=== PATIENT | male | born 1965 | race Caucasian/White ===

== ENCOUNTER → 2017-12-13 08:33 | Outpatient (CLI) | payer BC, SELFPAY ==
[2017-12-13 10:00] LABS: Alanine Aminotransferase 44 U/L (12-78); Albumin Level 3.5 gm/dL (3.4-5.0); Alkaline Phosphatase 97 U/L (46-116); Anion Gap 12.5 mEq/L (5-15); Aspartate Amino Transferase 17 U/L (15-37); Bilirubin,Total 0.4 mg/dL (0.2-1.0); Blood Urea Nitrogen 12 mg/dL (7-18); Calcium 9.2 mg/dL (8.5-10.1); Carbon Dioxide 27 mmol/L (21.0-32.0); Chloride 104 mmol/L (98-107); Chol/HDL Ratio 4.7 (1-3.5); Cholesterol 193 mg/dL (140-200); Creatinine,Serum 0.86 mg/dL (0.70-1.30); Estimated Glomerular Filt Rate 93 ml/min (>60); GFR (African American) 113 ML/MIN (>60); Globulin 3.5 gm/dl (1.3-3.2); Glucose 204 mg/dL (74-106); HDL Cholesterol 41 mg/dL (27-67); LDL Cholesterol 122 mg/dL (0-130); Potassium 4.5 mmoL/L (3.5-5.1); Sodium 139 mmol/L (136-145); Triglycerides 149 mg/dL (30-200); VLDL Cholesterol 30 mg/dL (0-40)
== END ==
PROVIDERS: Visit Provider Nurse Practitioner Family
DX: E78.00 Pure hypercholesterolemia, unspecified (principal); I10 Essential (primary) hypertension
CPT/HCPCS: 36415; 80053; 80061

== ENCOUNTER → 2018-08-01 15:30 | Outpatient (CLI) | payer BC, SELFPAY ==
--- NOTE | 2018-08-01 15:41 | XR_ITS ---
XR ankle RT min 3V Ordering Physician: Vianey Sinclair MD Patient Age: 53 years: Male HISTORY: ITS.REASON: RT ANKLE PAIN Anterior and medial ankle pain 1 month. No, reported. TECHNIQUE: 3 views right ankle COMPARISON :No previous FINDINGS . No acute fracture joint spaces well-maintained at the plafond and ankle mortise. . There is some minimal osseous densities off the tip lateral malleolus which likely reflects small old avulsion injury or degenerative change or accessory ossicle. Medial malleolus is intact. There may be some early degenerative changes as articulation with the medial aspect of talus. There is talar be seen in some osseous irregularities at the dorsal aspect the distal talus. These appear old likely reflect some mild degenerative changes, possibly posttraumatic changes as well... IMPRESSION . Ankle mortise appears overall maintained and intact. Suggestion of perhaps some mild degenerative changes at tip of lateral malleolus; & possibly medial aspect of talus
== END ==
PROVIDERS: PCP Family Medicine; Visit Provider Emergency Medicine
DX: M25.571 Pain in right ankle and joints of right foot (principal)
CPT/HCPCS: 73610

== ENCOUNTER → 2020-01-06 09:02 | Outpatient (CLI) | payer BC, SELFPAY ==
[2020-01-06 10:03] LABS: Alanine Aminotransferase 73 U/L (12-78); Albumin Level 4.5 g/dl (3.5-5.0); Albumin/Globulin Ratio 1.5 (1.1-1.8); Alkaline Phosphatase 87 U/L (38-126); Anion Gap 10.1 mEq/L (5-15); Aspartate Amino Transferase 66 U/L (17-59); Bilirubin,Total 0.6 mg/dl (0.2-1.3); Blood Urea Nitrogen 18 mg/dl (9-20); Calcium 10.1 mg/dl (8.4-10.2); Carbon Dioxide 30 mmol/L (22.0-30.0); Chloride 102 mmol/L (98-107); Chol/HDL Ratio 3.5 (1-3.5); Cholesterol 195 mg/dl (140-200); Estimated Glomerular Filt Rate 78 ml/min (>60); GFR (African American) 94 ML/MIN (>60); Glucose 162 mg/dl (74-100); HDL Cholesterol 55 mg/dl (40-60); Potassium 5.1 mmoL/L (3.5-5.1); Sodium 137 mmol/L (136-145); Total Protein,Serum 7.5 g/dl (6.3-8.2); Triglycerides 203 mg/dl (30-150); VLDL Cholesterol 41 mg/dL (0-40)
[2020-01-06 10:13] LABS: Direct LDL Cholesterol 119.92 mg/dL (100-129)
[2020-01-06 10:41] LABS: Hemoglobin A1C 7.4 % (4.0-6.0)
== END ==
PROVIDERS: Visit Provider Family Medicine
DX: E78.5 Hyperlipidemia, unspecified (principal); I10 Essential (primary) hypertension; F41.9 Anxiety disorder, unspecified
CPT/HCPCS: 36415; 80053; 80061; 83036

== ENCOUNTER → 2020-08-03 08:16 | Outpatient (CLI) | payer BC, SELFPAY ==
[2020-08-03 09:47] LABS: Hemoglobin A1C 7.4 % (4.0-6.0)
[2020-08-03 11:03] LABS: Alanine Aminotransferase 62 U/L (12-78); Albumin Level 4.6 g/dl (3.5-5.0); Albumin/Globulin Ratio 1.4 (1.1-1.8); Alkaline Phosphatase 86 U/L (38-126); Anion Gap 13.7 mEq/L (5-15); Aspartate Amino Transferase 53 U/L (17-59); Bilirubin,Total 0.8 mg/dl (0.2-1.3); Blood Urea Nitrogen 17 mg/dl (9-20); Calcium 9.6 mg/dl (8.4-10.2); Carbon Dioxide 28 mmol/L (22.0-30.0); Chloride 102 mmol/L (98-107); Cholesterol 176 mg/dl (140-200); Estimated Glomerular Filt Rate 100 ml/min (>60); GFR (African American) 121 ML/MIN (>60); Globulin 3.3 g/dL (1.3-3.2); Glucose 157 mg/dl (74-100); HDL Cholesterol 58 mg/dl (40-60); Potassium 4.7 mmoL/L (3.5-5.1); Sodium 139 mmol/L (136-145); Total Protein,Serum 7.9 g/dl (6.3-8.2); Triglycerides 200 mg/dl (30-150); VLDL Cholesterol 40 mg/dL (0-40)
[2020-08-03 11:14] LABS: Direct LDL Cholesterol 92.19 mg/dL (100-129)
[2020-08-03 11:34] LABS: Prostate Specific Ag Screen 0.4 ng/ml (0.0-4.0)
== END ==
PROVIDERS: Visit Provider Family Medicine
DX: I10 Essential (primary) hypertension (principal); E78.5 Hyperlipidemia, unspecified; E11.9 Type 2 diabetes mellitus without complications; Z12.5 Encounter for screening for malignant neoplasm of prostate
CPT/HCPCS: 36415; 80053; 80061; 83036; G0103

== ENCOUNTER → 2021-02-09 07:13 | Outpatient (CLI) | payer BC, SELFPAY ==
[2021-02-09 08:38] LABS: Alanine Aminotransferase 112 U/L (12-78); Albumin Level 4.1 g/dl (3.5-5.0); Albumin/Globulin Ratio 1.5 (1.1-1.8); Alkaline Phosphatase 86 U/L (38-126); Anion Gap 13.2 mEq/L (5-15); Aspartate Amino Transferase 134 U/L (17-59); Bilirubin,Total 0.6 mg/dl (0.2-1.3); Blood Urea Nitrogen 19 mg/dl (9-20); Carbon Dioxide 27 mmol/L (22.0-30.0); Chloride 103 mmol/L (98-107); Chol/HDL Ratio 3.7 (1-3.5); Cholesterol 133 mg/dl (140-200); Estimated Glomerular Filt Rate 88 ml/min (>60); GFR (African American) 106 ML/MIN (>60); Globulin 2.7 g/dL (1.3-3.2); Glucose 266 mg/dl (74-100); HDL Cholesterol 36 mg/dl (40-60); Potassium 4.2 mmoL/L (3.5-5.1); Sodium 139 mmol/L (136-145); Total Protein,Serum 6.8 g/dl (6.3-8.2); Triglycerides 255 mg/dl (30-150); Uric Acid 3.9 mg/dl (3.5-8.5); VLDL Cholesterol 51 mg/dL (0-40)
[2021-02-09 08:49] LABS: Direct LDL Cholesterol 70.14 mg/dL (100-129)
[2021-02-09 08:50] LABS: Hemoglobin A1C 8.2 % (4.0-6.0)
== END ==
PROVIDERS: Visit Provider Family Medicine
DX: I10 Essential (primary) hypertension (principal); E78.5 Hyperlipidemia, unspecified; E79.0 Hyperuricemia without signs of inflammatory arthritis and tophaceous disease; E11.9 Type 2 diabetes mellitus without complications
CPT/HCPCS: 36415; 80053; 80061; 83036; 84550

== ENCOUNTER → 2021-06-06 12:05 | Outpatient (CLI) | payer BC, SELFPAY | PROVIDERS: PCP Family Medicine; Visit Provider Nurse Practitioner | DX: Z20.822 Contact with and (suspected) exposure to COVID-19 (principal) | CPT/HCPCS: C9803; U0003; U0005 ==

== ENCOUNTER → 2021-06-12 09:48 | Outpatient (CLI) | payer BC, SELFPAY ==
[2021-06-12 10:34] LABS: INR 1.06 (0.9-1.1); Prothrombin Time 11.9 seconds (10.1-12.5)
[2021-06-12 10:52] LABS: Chloride 100 mmol/L (98-107); Potassium 4.4 mmoL/L (3.5-5.1); Sodium 137 mmol/L (136-145)
[2021-06-12 10:55] LABS: Alanine Aminotransferase 113 U/L (12-78); Albumin Level 4.5 g/dl (3.5-5.0); Albumin/Globulin Ratio 1.7 (1.1-1.8); Alkaline Phosphatase 89 U/L (38-126); Anion Gap 15.4 mEq/L (5-15); Aspartate Amino Transferase 125 U/L (17-59); Bilirubin,Total 0.6 mg/dl (0.2-1.3); Blood Urea Nitrogen 19 mg/dl (9-20); Calcium 10.1 mg/dl (8.4-10.2); Carbon Dioxide 26 mmol/L (22.0-30.0); Estimated Glomerular Filt Rate 87 ml/min (>60); GFR (African American) 106 ML/MIN (>60); Globulin 2.6 g/dL (1.3-3.2); Glucose 349 mg/dl (74-100); Total Protein,Serum 7.1 g/dl (6.3-8.2)
[2021-06-12 11:28] LABS: Basophils # 0.1 K/mm3 (0-0.2); Basophils % 1.3 % (0.1-2.0); Eosinophils # 0.4 K/mm3 (0.0-0.4); Eosinophils % 7.2 % (0.1-12.0); Hematocrit 45.3 % (42.0-52.0); Hemoglobin 15.3 g/dL (14.1-18.0); Lymphocytes # 0.7 K/mm3 (0.7-4.5); Lymphocytes % 12.4 % (10-50); Mean Corpuscular HGB Conc 33.8 g/dL (31.8-35.4); Mean Corpuscular Hemoglobin 31.1 pg (27.0-31.2); Mean Corpuscular Volume 91.9 fl (80-94); Mean Platelet Volume 9.1 fl (7.4-10.4); Monocytes # 0.2 K/mm3 (0.1-1.0); Neutrophils # 4.3 K/mm3 (1.8-7.8); Neutrophils % 75.1 % (37.0-80.0); Platelet Count 195 K/mm3 (142-424); Red Blood Count 4.93 M/mm3 (4.60-6.20); Red Cell Distribution Width 13.3 % (11.5-17.5); White Blood Count 5.8 K/mm3 (4.8-10.8)
== END ==
PROVIDERS: Visit Provider Surgery
DX: K42.9 Umbilical hernia without obstruction or gangrene (principal)
CPT/HCPCS: 36415; 80053; 82565; 84520; 85025; 85610

== ENCOUNTER → 2021-06-14 08:05 | Outpatient (CLI) | payer BC, SELFPAY | PROVIDERS: PCP Family Medicine; Visit Provider Nurse Practitioner | DX: U07.1 COVID-19 (principal) | CPT/HCPCS: C9803; U0003; U0005 ==

== ENCOUNTER → 2021-07-03 09:35 | Outpatient (CLI) | payer BC, SELFPAY ==
--- NOTE | 2021-07-03 09:37 | CT_ITS ---
PROCEDURE: CT ABDOMEN PELVIS W CON CLINICAL INDICATION: eval hernia COMPARISON: No exams were available for comparison TECHNIQUE: IV Contrast: 75ML Isovue 370 Oral Contrast None Axial images obtained with sagittal and coronal reformats. All CT scans at the facility use one or more dose reduction, viz: automated exposure control, ma/kV adjustment per patient size (including targeted exams where dose is matched to indication, i.e. head), or iterative reconstruction technique. FINDINGS: LOWER THORAX: Nonspecific small patchy areas of ground-glass attenuation are present in lung bases. This could be inflammatory or infectious. ABDOMEN & PELVIS: Fatty liver. No focal liver lesion identified. The spleen, adrenal glands, pancreas, and gallbladder have an unremarkable appearance. There are bilateral renal cysts the largest in the lower pole on the left measuring 5 cm. The appendix has an unremarkable appearance. No intestinal obstruction or free air. There is thickening of the urinary bladder wall nonspecific. No pelvic mass or abnormal fluid collection. There is a small umbilical hernia which contains fat. There is a bridging osteophyte in the left SI joint superiorly. IMPRESSION: 1. Small umbilical hernia containing fat. 2. Nonspecific small patchy areas of ground-glass attenuation in the lower lobes which could be inflammatory or infectious. Dictated by: Nathan Guerrero MD 07/04/2021 14:36 Nathan Guerrero MD in [facility] 07/04/2021 14:36
[2021-07-03 10:06] LABS: Blood Urea Nitrogen 14 mg/dl (9-20); Estimated Glomerular Filt Rate 100 ml/min (>60); GFR (African American) 121 ML/MIN (>60)
== END ==
PROVIDERS: PCP Family Medicine; Visit Provider Surgery
DX: K42.9 Umbilical hernia without obstruction or gangrene (principal)
CPT/HCPCS: 36415; 74177; 82565; 84520; Q9967

== ENCOUNTER 2021-07-24 07:10 | Day surgery (SDC) | payer BC, SELFPAY ==
[2021-07-20 09:23] VITALS: BMI 29.7
[2021-07-24 07:27] VITALS: BP 141/84; PULSE 73; RESP 18; TEMP 36.1; O2SAT 99
--- NOTE | 2021-07-24 07:43 | HMH.ANESCL ---
[facility] Anesthesia Checklist - Patient Identification Patient Identification: Arm Band - Structural Data Admitted From: Home Planned Operative Procedure/s: Circumcision Consent for Planned Operative Procedure(s) Verified: Yes - NPO Status Verified Time NPO: 00:00 - Additional verifications Anesthesia Reactions: No Hx Blood Transfusions: No Blood Transfusion Reaction: No - Airway Assessment C-Spine Mobility Assessed: Yes TMJ Mobility Assessed: Yes Dentition: Good Dentition - Neurological Assessment Level of Consciousness: Awake Hx Seizures: No Numbness or tingling in extremities: No - Anesthesia Plan Anesthesia Risk discussed: Yes Anesthesia Plan: Verified ASA Class: III Anesthesia Type: MAC [facility] History I have reviewed the patient's past medical history: Yes Medical History: Reports:: Diabetes Mellitus Type 2, Hyperlipidemia, Hypertension Denies:: Cancer, Diabetes Mellitus Type 1, Internal Pacemaker, MRSA, Seizures *Have you ever received a pneumonia vaccine?: Yes *Have you received a flu vaccine this season?: Yes Other Medical History: Denies: Blood Transfusion Reaction Anesthesia experience/problems:: None Other Surgeries: Yes: Colonoscopy, Other. No: Pacemaker Amputation: No Fractures: No - *Social History Last grade of school completed: High school graduate Smoking Status: Current every day smoker Tobacco Type: smokeless tobacco # Packs/Day (cigarettes): 1 Alcohol Intake: current Alcohol Intake Frequency:: a few times a week Substance Use Type: denies use *Occupational Status:: employed Housing: house Household Members: spouse *Travel in the last 8 weeks: None Family Hx:: Heart Attack, Coronary Artery Disease
[2021-07-24 07:48] LABS: Basophils # 0.2 K/mm3 (0-0.2); Basophils % 2.1 % (0.1-2.0); Eosinophils # 0.5 K/mm3 (0.0-0.4); Eosinophils % 6.5 % (0.1-12.0); Hematocrit 45.8 % (42.0-52.0); Lymphocytes # 1.7 K/mm3 (0.7-4.5); Lymphocytes % 24.2 % (10-50); Mean Corpuscular HGB Conc 32.7 g/dL (31.8-35.4); Mean Corpuscular Hemoglobin 31.2 pg (27.0-31.2); Mean Corpuscular Volume 95.2 fl (80-94); Mean Platelet Volume 8.4 fl (7.4-10.4); Monocytes # 0.3 K/mm3 (0.1-1.0); Monocytes % 4.6 % (1.7-9.3); Neutrophils # 4.3 K/mm3 (1.8-7.8); Neutrophils % 62.6 % (37.0-80.0); Platelet Count 204 K/mm3 (142-424); Red Cell Distribution Width 13.6 % (11.5-17.5); White Blood Count 6.9 K/mm3 (4.8-10.8)
[2021-07-24 08:29] LABS: Anion Gap 11.2 mEq/L (5-15); Blood Urea Nitrogen 17 mg/dl (9-20); Calcium 9.5 mg/dl (8.4-10.2); Carbon Dioxide 28 mmol/L (22.0-30.0); Chloride 100 mmol/L (98-107); Creatinine Clearance Estimated 132 mL/min (50-200); Estimated Glomerular Filt Rate 87 ml/min (>60); GFR (African American) 106 ML/MIN (>60); Glucose 226 mg/dl (74-100); Potassium 4.2 mmoL/L (3.5-5.1); Sodium 135 mmol/L (136-145)
[2021-07-24 09:55] VITALS: BP 98/58; PULSE 71; RESP 18; TEMP 36.4; O2SAT 91
[2021-07-24 10:05] VITALS: BP 108/63; PULSE 62; RESP 18; O2SAT 92
--- NOTE | 2021-07-24 10:09 | P.OP_ITS ---
Date of procedure: 07/24/21 Pre-op Diagnosis:: Phimosis Post-op Diagnosis:: Phimosis Procedure performed:: Circumcision Surgeon:: Riccardo Izaguirre MD [employer]:: Tamra Morales Anesthesia: MAC Estimated blood loss (mL): 2 Clinical Note:: 56-year-old white male with a several month history of recurring balanitis and difficulty retracting foreskin presents for circumcision. Operative findings:: Phimotic foreskin noted. Incision performed without location. Operative note:: Patient taken to the operating room after informed consent was obtained. He was placed on the operating table in the supine position and monitored anesthesia care administered. Was prepped and draped in the standard surgical fashion. Preoperative antibiotics and sequential compression devices were placed. Local anesthetic was placed in a ringlike fashion around the base of the penis. A total of 30 cc was used. After adequate analgesia the circumcision marked just below the caldera of the glans while retracting the foreskin to approximate maximal length. The dorsal foreskin was then clamped back to the line that was marked and held for 30 seconds. The clamp and removed with scissors were used to incise the skin back to the marked line. We then placed clamps on the 4 corners of the skin in the Metzenbaum scissors were used to incise the skin in a circumferential fashion and the skin removed. Stasis was achieved and a frenulotomy was performed incising the adhesed frenulum on the ventral portion of the glans. After adequate hemostasis the foreskin reapproximated to the preputial skin below the glans. 300 4-0 chromic's were used in a simple rapid fashion. Frenulotomy closed with a 4-0 chromic. A Vaseline impregnated gauze was placed around the incision and a compression dressing applied. Patient tolerated procedure well there is minimal blood loss. Condition: stable Disposition: same day Specimens:: Foreskin was not sent Complications:: None
[2021-07-24 10:15] VITALS: BP 106/74; PULSE 63; RESP 18; O2SAT 96
[2021-07-24 10:25] VITALS: BP 106/74; PULSE 63; RESP 18; O2SAT 96
[2022-04-12 10:56] LABS: POC Glucose,Bedside 210 (70-110)
== END 2021-07-24 10:25 | disposition home or self-care (01) ==
LOC: OR 07:12
PROVIDERS: PCP Family Medicine; Visit Provider Urology
PROC: (CPT 54161; principal; 2021-07-24 08:15)
DX: N47.1 Phimosis (principal); E11.9 Type 2 diabetes mellitus without complications; E78.5 Hyperlipidemia, unspecified; I10 Essential (primary) hypertension; Z88.0 Allergy status to penicillin; Z79.899 Other long term (current) drug therapy
CPT/HCPCS: 54161; 80048; 82962; 85025; 96374

== ENCOUNTER → 2022-01-09 07:59 | Outpatient (CLI) | payer BC, SELFPAY ==
[2022-01-09 09:08] LABS: Hemoglobin A1C 8.1 % (4.0-6.0)
[2022-01-09 09:12] LABS: Chloride 105 mmol/L (98-107); Potassium 4.7 mmoL/L (3.5-5.1); Sodium 138 mmol/L (136-145)
[2022-01-09 09:14] LABS: Alanine Aminotransferase 65 U/L (12-78); Aspartate Amino Transferase 62 U/L (17-59); Blood Urea Nitrogen 14 mg/dl (9-20); Estimated Glomerular Filt Rate 100 ml/min (>60); GFR (African American) 121 ML/MIN (>60)
[2022-01-09 09:15] LABS: Albumin Level 4.4 g/dl (3.5-5.0); Albumin/Globulin Ratio 1.5 (1.1-1.8); Alkaline Phosphatase 86 U/L (38-126); Anion Gap 11.7 mEq/L (5-15); Bilirubin,Total 0.4 mg/dl (0.2-1.3); Calcium 9.8 mg/dl (8.4-10.2); Carbon Dioxide 26 mmol/L (22.0-30.0); Chol/HDL Ratio 3.5 (1-3.5); Cholesterol 176 mg/dl (140-200); Globulin 2.9 g/dL (1.3-3.2); Glucose 247 mg/dl (74-100); HDL Cholesterol 51 mg/dl (40-60); Total Protein,Serum 7.3 g/dl (6.3-8.2); Triglycerides 371 mg/dl (30-150); VLDL Cholesterol 74 mg/dL (0-40)
[2022-01-09 09:26] LABS: Direct LDL Cholesterol 81.24 mg/dL (100-129)
[2022-01-09 10:06] LABS: Prostate Specific Ag Screen 0.6 ng/ml (0.0-4.0)
== END ==
PROVIDERS: PCP Family Medicine; Visit Provider Family Medicine
DX: E11.9 Type 2 diabetes mellitus without complications (principal); E78.5 Hyperlipidemia, unspecified; E79.0 Hyperuricemia without signs of inflammatory arthritis and tophaceous disease; I10 Essential (primary) hypertension; Z12.5 Encounter for screening for malignant neoplasm of prostate; Z79.84 Long term (current) use of oral hypoglycemic drugs
CPT/HCPCS: 36415; 80053; 80061; 83036; 84550; G0103

== ENCOUNTER → 2022-05-14 16:25 | Outpatient (CLI) | payer BC, SELFPAY ==
--- NOTE | 2022-05-14 16:30 | XR_ITS ---
PROCEDURE INFORMATION: Exam: XR Lumbosacral Spine Exam date and time: 05/14/2022 4:32 PM Age: 57 years old Clinical indication: Low back pain TECHNIQUE: Imaging protocol: Radiologic exam of the lumbosacral spine. Views: 2 or 3 views. COMPARISON: CT ABDOMEN PELVIS W CON 07/03/2021 10:23 AM FINDINGS: Bones/joints: Mild loss of the lumbar lordotic curvature. mild-moderate diffuse disc space narrowing. Findings most pronounced at L3-L4 and L4-L5. Soft tissues: Unremarkable. IMPRESSION: Lumbar spondylosis with multilevel disc degeneration most pronounced at L3-L4 and L4-L5.
== END ==
PROVIDERS: PCP Family Medicine; Visit Provider Family Medicine
DX: M54.42 Lumbago with sciatica, left side (principal)
CPT/HCPCS: 72100

== ENCOUNTER → 2022-08-01 07:50 | Outpatient (CLI) | payer BC, SELFPAY ==
[2022-08-01 09:12] LABS: Alanine Aminotransferase 61 U/L (12-78); Albumin Level 4.8 g/dl (3.5-5.0); Albumin/Globulin Ratio 1.8 (1.1-1.8); Alkaline Phosphatase 92 U/L (38-126); Anion Gap 12.9 mEq/L (5-15); Aspartate Amino Transferase 66 U/L (17-59); Bilirubin,Total 0.7 mg/dl (0.2-1.3); Blood Urea Nitrogen 16 mg/dl (9-20); Calcium 9.1 mg/dl (8.4-10.2); Carbon Dioxide 26 mmol/L (22.0-30.0); Chloride 106 mmol/L (98-107); Chol/HDL Ratio 3.6 (1-3.5); Cholesterol 178 mg/dl (140-200); Estimated Glomerular Filt Rate 87 ml/min (>60); GFR (African American) 105 ML/MIN (>60); Globulin 2.7 g/dL (1.3-3.2); Glucose 172 mg/dl (74-100); HDL Cholesterol 50 mg/dl (40-60); Potassium 4.9 mmoL/L (3.5-5.1); Sodium 140 mmol/L (136-145); Total Protein,Serum 7.5 g/dl (6.3-8.2); Triglycerides 248 mg/dl (30-150); VLDL Cholesterol 50 mg/dL (0-40)
[2022-08-01 09:16] LABS: Hemoglobin A1C 7.8 % (4.0-6.0)
[2022-08-01 09:22] LABS: Direct LDL Cholesterol 87.54 mg/dL (100-129)
== END ==
PROVIDERS: PCP Family Medicine; Visit Provider Family Medicine
DX: I10 Essential (primary) hypertension (principal); E78.5 Hyperlipidemia, unspecified; E11.9 Type 2 diabetes mellitus without complications; Z79.84 Long term (current) use of oral hypoglycemic drugs
CPT/HCPCS: 36415; 80053; 80061; 83036

== ENCOUNTER 2024-05-26 11:59 | Outpatient (CLI) | payer BC, SELFPAY ==
--- NOTE | 2024-05-26 12:10 | ECG_ITS ---
APPROVED REPORT Exam: Resting ECG HR:127 bpm ECG Measurements Heart Rate 127 AXES QRSd 87 QRS 5 QT 278 T 63 QTc 353 Conclusion ATRIAL FIBRILLATION WITH RAPID VENTRICULAR RESPONSE NONSPECIFIC T-WAVE ABNORMALITY ABNORMAL RHYTHM ECG UNCONFIRMED REPORT Electronically signed by : Navdeep Giordano MD 05/26/2024 17:00:51
[2024-05-26 14:19] LABS: Basophils # 0.1 K/mm3 (0-0.2); Basophils % 1.3 % (0.1-2.0); Eosinophils # 0.4 K/mm3 (0.0-0.4); Hematocrit 44.7 % (42.0-52.0); Hemoglobin 15.5 g/dL (14.1-18.0); Lymphocytes # 1.4 K/mm3 (0.7-4.5); Lymphocytes % 15.7 % (10-50); Mean Corpuscular HGB Conc 34.7 g/dL (31.8-35.4); Mean Corpuscular Hemoglobin 31.1 pg (27.0-31.2); Mean Corpuscular Volume 89.8 fl (80-94); Mean Platelet Volume 7.5 fl (7.4-10.4); Monocytes # 0.3 K/mm3 (0.1-1.0); Monocytes % 3.8 % (1.7-9.3); Neutrophils # 6.4 K/mm3 (1.8-7.8); Neutrophils % 74.2 % (37.0-80.0); Platelet Count 253 K/mm3 (142-424); Red Blood Count 4.98 M/mm3 (4.60-6.20); Red Cell Distribution Width 13.7 % (11.5-17.5); White Blood Count 8.7 K/mm3 (4.8-10.8)
[2024-05-26 14:48] LABS: Alanine Aminotransferase 39 U/L (12-78); Albumin Level 4.3 g/dl (3.5-5.0); Alkaline Phosphatase 89 U/L (38-126); Anion Gap 16.6 mEq/L (5-15); Aspartate Amino Transferase 43 U/L (17-59); Bilirubin,Direct 0.4 mg/dl (0.0-0.4); Bilirubin,Indirect 0.3 mg/dL (0.0-0.9); Bilirubin,Total 0.7 mg/dl (0.2-1.3); Bilirubin,Unconjugated 0.3 mg/dL (0.0-1.1); Blood Urea Nitrogen 22 mg/dl (9-20); Calcium 9.6 mg/dl (8.4-10.2); Carbon Dioxide 22 mmol/L (22.0-30.0); Chloride 103 mmol/L (98-107); Chol/HDL Ratio 4.2 (1-3.5); Cholesterol 159 mg/dl (140-200); Estimated Glomerular Filt Rate 86 ml/min (>60); GFR (African American) 105 ML/MIN (>60); Glucose 173 mg/dl (74-100); HDL Cholesterol 38 mg/dl (40-60); Potassium 4.6 mmoL/L (3.5-5.1); Sodium 137 mmol/L (136-145); Total Protein,Serum 7.2 g/dl (6.3-8.2); Triglycerides 452 mg/dl (30-150)
[2024-05-26 14:59] LABS: Direct LDL Cholesterol 62.35 mg/dL (100-129)
[2024-05-26 15:06] LABS: Free T4 (Free Thyroxine) 1.02 ng/dl (0.78-2.19)
[2024-05-26 15:18] LABS: Thyroid Stimulating Hormone 4.13 uIU/mL (0.465-4.68)
== END 2024-05-26 23:59 | disposition home or self-care (01) ==
PROVIDERS: PCP Family Medicine; Referring Provider Internal Medicine; Visit Provider Nurse Practitioner Family
DX: I48.0 Paroxysmal atrial fibrillation (principal); R07.9 Chest pain, unspecified; R06.00 Dyspnea, unspecified; R94.31 Abnormal electrocardiogram [ECG] [EKG]; G47.33 Obstructive sleep apnea (adult) (pediatric)
CPT/HCPCS: 36415; 80048; 80061; 80076; 84439; 84443; 85025; 93005; 93270

== ENCOUNTER 2024-06-05 11:43 | Outpatient (CLI) | payer BC, SELFPAY ==
--- NOTE | 2024-06-05 | CA_ITS ---
APPROVED REPORT Exam: Exercise Treadmill Technologist: Kathy Vance Ht: 6 ft 0 in Wt: 216 lbs BSA: 2.20 m2 HR: 103 bpm BP: 142/92 mmHg Rhythm: Afib, RVR, PVCs or aberrantly conducted beats, inferior T wave abns Medical History Medical History: HTN, Hyperlipidemia, Diabetes Medications: Allopurinol, Celecoxib, Farxiga, Fenofibrate nanocrystallized, Glimepiride, Toprol XL, Metformin ER, Montelukast, Ramipril, Rosuvastatin, Venlafaxine ER, Xarelto Allergies: PCN Cardiac Risk Factors: HTN, Hyperlipidemia, Diabetes, FHX of CAD Stress Test Details Test: Exercise stress testing was performed using a modified Govind protocol. HR Resting HR: 103 bpm Max Heart Rate (APMHR): 161.971059 bpm Max HR Achieved: 179 bpm Target HR (85% APMHR): 136.920176 bpm % of APMHR: 111.18 Recovery HR: 147 bpm BP Resting BP: 142.0/92.0 mmHg Max BP: 176.0/86.0 mmHg Recovery BP: 146.0/97.0 mmHg ECG Resting ECG: Afib, RVR, PVCs or aberrantly conducted beats, inferior T wave abns Stress ECG Conclusion Pt exercised 8:00 on Govind protocol Max HR: 179 % of PM: 111% Max BP: 176/86 Mets: 10.3 Test stopped due to: soa and leg fatigue No chest pain Occ PVC or aberrantly conducted beats Exaggeration of baseline T wave abns in the inferior leads, 0.5mm horizontal ST depression in lead V6 Non-diagnostic GXT due to baseline EKG abns Myoview images reported separately Electronically signed by : Nissa Peralta MD 06/08/2024 11:49:49
--- NOTE | 2024-06-05 11:44 | NM_ITS ---
APPROVED REPORT Exam: Nuclear Stress Test Indication: dysrythmia, htn, diabetes, hyperlipidemia, fm hx, a -fib, c.p., sob, palpitations, abn ekg Patient Location: Outpatient Stress Tech: Kathy Vance DE Tech:Carmita Carcamo TOMMYNicolás RT (R)(N)(M) Ht: 6 ft 1 in Wt: 210 lbs HR: 103 bpm BP: 142/92 mmHg BSA: 2.20 m2 TID: 0.96 BMI: 27.7 History: dysrythmia, htn, diabetes, hyperlipidemia, fm hx, a -fib, c.p., sob, palpitations, abn ekg Procedure: Patient exercised on Govind protocol 8:00 minutes and sec, resting heart rate 103 bpm, resting blood pressure 142/92 mmHg, with exercise maximum heart rate achived was 179 bpm which is 111 % of the maximum predicted heart rate and blood pressure was 176/86 mmHg. Test was stopped due to fatigue. Patient has Average exercise capacity, achieved 10.3 METs of workload on treadmill, the blood pressure response to exercise was Normal. Cardiac Stress and Resting SPECT Images: Cardiac Stress and Resting SPECT images were obtained using technetium 99m Myoview 32.1 mCi stress and 10.95 mCi at rest. Resting and stress imaging in supine and prone positions demonstrate a medium sized, moderate, predominantly fixed perfusion defect in the basal to mid inferior and inferoseptal LV steward. There is minimal reversibility towards the inferoseptal region. Gated imaging and straits moderate reduction in global LV systolic function. LVEF is calculated at 33%. Conclusion: Medium sized, moderate, predominantly fixed perfusion defect in the basal to mid inferior and inferoseptal LV steward. There is minimal reversibility towards the inferoseptal region. Gated imaging and straits moderate reduction in global LV systolic function. LVEF is calculated at 33%. Note that LVEF calculation may be inaccurate in the setting of frequent PVCs at the time of image acquisition. Correlation of LVEF with new or recent TTE is suggested. Electronically signed by : Nissa Peralta MD 06/08/2024 11:52:06
[2024-06-05] MEDS: SODIUM CHLORIDE 0.9% 10ML SYR (RAD ONLY) 10 ML IV ×2 (12:00→13:20)
--- NOTE | 2024-06-05 12:47 | CA_ITS ---
APPROVED REPORT EXAM: Comprehensive 2D, Doppler, and color-flow Echocardiogram Merchandise Appraiser: Reta Rasmussen RVT Ht: 6 ft 0 in Wt: 216lbs BSA: 2.20 BP: 126/89 mmHg Indications: CP,A-FIB,ABN EKG,JAI,EDEMA,HTN,HLD,SOA,SMOKER,FATIGUE 2D Dimensions IVSd 1.63 cm M: 0.6-1.2 LA Volume 50.80 mL PWd 1.12 cm M: 0.6 - 1.2 LA Volume Index 23.09 mL/m2 (M/F) 16-34 LVDd 4.24 cm M: 4.2 - 5.9 M-Mode Dimensions RVDd 2.27 cm (0.9-2.6) LA Diam 4.06 cm (1.9-4.0) LVDd 4.24 cm (3.5-5.7) LVDs 3.40 cm (3.5-5.7) IVSd 1.21 cm (0.6-1.1) PWd 0.49 cm (0.6-1.1) EF (Teich) 41.00% FS 19.80% EDV (Teich) 80.40 mL TAPSE 2.35 (<1.7) ESV (Teich) 47.40 mL Aortic Valve ARNAV Index 1.08 cm2/m2 AoV Peak Telly. 158.0 (50-130 cm/s) AI PHT 662.00 ms AO Peak GR. 9.90 mmHg AO Mean GR. 5.80 (<5 mmHg) AO VTI 27.2 (18-25 cm) ARNAV (VTI) 2.43 (2.5-4.5 cm2) Pulmonary Valve PV Peak Velocity 86.0 (50-150 cm/s) Left Ventricle The left ventricle is normal size. The left ventricular systolic function is normal. The left ventricular ejection fraction is within the normal range. There is increased LV wall thickness. The septum is asynchronous. No regional wall motion abnormalities are noted. Diastolic function is indeterminate. LVEF is 55%. Right Ventricle The right ventricle is normal size. The right ventricular systolic function is normal. Atria The left atrium size is normal. The right atrium size is normal. There is no Doppler evidence of interatrial shunt. Aortic Valve The aortic valve is mildly thickened. There is no aortic valvular stenosis. Mild aortic regurgitation. Mitral Valve The mitral valve is normal in structure. No evidence of mitral valve stenosis. There is no mitral valve regurgitation noted. Tricuspid Valve Tricuspid valve is grossly normal in structure and function. Trace tricuspid regurgitation. There is insufficient TR jet to estimate RVSP. Pulmonic Valve The pulmonary valve is normal in structure. Trace pulmonic regurgitation. Great Vessels The aortic root is normal in size. The ascending aorta is not well-visualized. IVC is normal in size and collapses >50% with inspiration. Pericardium There is no pericardial effusion. Other Information Study Quality: Fair Conclusion Normal biventricular systolic function. Asynchronous septum. Mild AI. Electronically signed by : Nissa Peralta MD 06/15/2024 13:49:16
[2024-06-05] MEDS: ISOTOPE MYOVIEW (PER STUDY) 1 DOSE IV (15:10)
== END 2024-06-05 23:59 | disposition home or self-care (01) ==
LOC: RAD 11:44
PROVIDERS: PCP Family Medicine; Visit Provider Internal Medicine
DX: R07.9 Chest pain, unspecified (principal); R06.00 Dyspnea, unspecified; R94.31 Abnormal electrocardiogram [ECG] [EKG]; I48.91 Unspecified atrial fibrillation
CPT/HCPCS: 78452; 93017; 93018; 93306; A9502

== ENCOUNTER 2024-06-23 08:41 | Day surgery (SDC) | payer BC, SELFPAY ==
[2024-06-23] VITALS (9 sets, daily range): BP systolic 92–151; BP diastolic 57–83; PULSE 69–101; RESP 15–18; TEMP 36.9; O2SAT 90–96; BMI 29.0
--- NOTE | 2024-06-23 07:20 | IR_ITS ---
APPROVED REPORT Patient Location: Outpatient PROCEDURES Left heart catheterization Left ventriculogram Selective coronary angiogram INDICATION Abnormal Myoview, Cardiomyopathy ejection fraction 33% Informed consent was obtained prior to the procedure. COMPLICATIONS NONE Estimated Blood Loss: LESS THAN 10 ML TECHNIQUE One percent lidocaine used to anesthetize the right anterior aspect of the wrist. The right radial artery was accessed via the Seldinger technique. A 6 [place] sheath was placed in the right radial artery. 2.5 mg of Verapamil, 800 mcg of nitroglycerin, 1mg Lidocaine and 5000 U Heparin were given through the arterial sheath. The papa catheter was also used to perform left heart catheterization, left ventriculogram and selective coronary angiogram. At the end of the procedure the sheath was removed good hemostasis was achieved using Traclet band, patient was transferred to the postop holding area in stable condition. ANGIOGRAPHIC RESULTS The left main artery Normal The left anterior descending artery Has proximal and mid vessel 10% luminal regularities. There is a mid LAD myocardial bridge which compresses to 50% during systole The circumflex artery Codominant and has diffuse 10% luminal regularities The right coronary artery Codominant and has diffuse 10% luminal regularities The HANNA ventriculogram reveals Mild left ventricular dilatation ejection fraction 55% The left ventricular end-diastolic pressure Elevated at 20 mmHg IMPRESSION Mild nonflow limiting coronary disease Clinically inconsequential myocardial bridge Mild left ventricular dilatation with preserved ejection fraction Elevated LVEDP PLAN 1. Consider cardiac MRI 2. Risk factor modification 3. Medical management Electronically signed by : Abelino Lebron MD 06/23/2024 11:35:19
[2024-06-23 09:19] LABS: Basophils # 0.1 K/mm3 (0-0.2); Basophils % 1.2 % (0.1-2.0); Eosinophils # 0.3 K/mm3 (0.0-0.4); Eosinophils % 5.1 % (0.1-12.0); Hematocrit 46.2 % (42.0-52.0); Hemoglobin 15.1 g/dL (14.1-18.0); Lymphocytes # 1.1 K/mm3 (0.7-4.5); Lymphocytes % 18.2 % (10-50); Mean Corpuscular HGB Conc 32.7 g/dL (31.8-35.4); Mean Corpuscular Hemoglobin 30.3 pg (27.0-31.2); Mean Corpuscular Volume 92.4 fl (80-94); Mean Platelet Volume 7.8 fl (7.4-10.4); Monocytes # 0.3 K/mm3 (0.1-1.0); Monocytes % 4.7 % (1.7-9.3); Neutrophils # 4.3 K/mm3 (1.8-7.8); Neutrophils % 70.8 % (37.0-80.0); Platelet Count 248 K/mm3 (142-424); Red Cell Distribution Width 13.9 % (11.5-17.5); White Blood Count 6.1 K/mm3 (4.8-10.8)
[2024-06-23 09:24] LABS: Chloride 105 mmol/L (98-107); Sodium 140 mmol/L (136-145)
[2024-06-23 09:25] LABS: Potassium 4.4 mmoL/L (3.5-5.1)
[2024-06-23 09:28] LABS: Anion Gap 13.4 mEq/L (5-15); Blood Urea Nitrogen 20 mg/dl (9-20); Calcium 9.5 mg/dl (8.4-10.2); Carbon Dioxide 26 mmol/L (22.0-30.0); Creatinine Clearance Estimated 121 mL/min (50-200); Estimated Glomerular Filt Rate 86 ml/min (>60); GFR (African American) 105 ML/MIN (>60); Glucose 215 mg/dl (74-100)
[2024-06-23] MEDS: VERAPAMIL 2.5MG/ML 2ML VIAL 2.5 MG IV (11:00)
[2024-06-23] MEDS: HEPARIN 1,000 UNITS/ML 10ML VIAL (CATH LAB) 10000 UNIT IV (11:00)
[2024-06-23] MEDS: 0.9 % SODIUM CHLORIDE 500 ML 25 ML IV (11:00)
[2024-06-23] MEDS: HEPARIN 1,000 UNITS/500ML NS (CATH LAB) 3000 UNIT IV (11:00)
[2024-06-23] MEDS: NITROGLYCERIN 800MCG/8ML SYR (CATH LAB) 800 MCG IA (11:01)
[2024-06-23] MEDS: LIDOCAINE 1% 10ML MDV 20 ML IJ (11:01)
[2024-06-23] MEDS: FENTANYL 100MCG/2ML VIAL 50 MCG IV (11:24)
[2024-06-23] MEDS: MIDAZOLAM HCL 1MG/ML 5ML VIAL 1 MG IV (11:24)
[2024-06-23] MEDS: diphenhydrAMINE 50MG/ML VIAL 50 MG IV (11:25)
[2024-06-23] MEDS: IOPAMIDOL-370 (76%);100ML BOTTLE 75 ML IV (14:48)
--- OUTSIDE RECORDS SUMMARY | 2024-06-23 22:38 | XMS_ITS ---
[facility] [address] [facility] [address] [place] [id number] Care Team Providers Care Traveling Representative Name Role Phone iSmone Gonzales Primary Care Provider REASON FOR VISIT 6 month follow up, Needs colon cancer screening, diabetic eye exam, shingles, & flu vaccines Encounters Encounter Location Date Provider [facility] [address] [facility] [address] [facility] [address] [place] [id number] 06/04/2024 Simone Gonzales PLAN OF TREATMENT No Information
--- OUTSIDE RECORDS SUMMARY | 2024-06-23 22:38 | XMS_ITS | Patient Health Record ---
[facility] [address] [facility] 36 [facility] [address] [place] [id number] Care Team Providers Care Molder Closed Molds Name Role Phone Simone Gonzales Primary Care Provider Radha Posadas Unavailable [phone] Bre Gardner Unavailable [phone] ALLERGIES Allergen (clinical drug ingredient) Drug/Non Drug Allergy documented on EMR Reaction Allergy Type Onset Date Status Penicillin hives Drug Allergy Active RESULTS Component Value Reference Range Notes Glucose (In-House) [...] Interpretation:gluc 242, bun 21 Performing Lab: Notes/Report: Test performed by [facility] [place][note 2]0 [facility] , [place] [address] Scotty Farrell MD, Java Core Developer CLIA: [id number] Sodium 136 135-145 mmol/L Potassium 4.9 3.5-5.3 [...] Interpretation:Normal Performing Lab: Notes/Report: Test performed by [facility] [address] [place] [address] , [place] [address] Scotty Farrell MD, Java Core Developer CLIA: [id number] Creatine Kinase 74 20-200 U/L CK MB Fraction 2.3 <7.7 ng/mL A-Ctouwidh-I Reviewed date:06/02/2024 09:27:45 AM Interpretation:Normal Performing Lab: Notes/Report: Test performed by [facility] [address] [place] [address] , [place] [id number] Scotty Farrell MD, Java Core Developer CLIA: [id number] Troponin-T 14 <6-18 ng/L Patients who are prescribed biotin may exhibit elevated troponin results. Please interpret results accordingly. P-TSH Reviewed date:06/02/2024 09:28:50 AM Interpretation:3.26 Performing Lab: Notes/Report: Test performed by [facility] [address] [place] [address] , [facility] [place] [address] Scotty Farrell MD, Java Core Developer CLIA: [id number] TSH 3.26 0.43-5.25 mU/L P-Uric Acid Reviewed date:06/02/2024 09:27:03 AM Interpretation:3.1 Performing Lab: Notes/Report: Test performed by [facility] , [place] [address] Scotty Farrell MD, Java Core Developer CLIA: [id number] Uric Acid 3.1 3.4-8.0 mg/dL P-Uric Acid Reviewed date:12/17/2023 08:59:12 AM Interpretation:Normal Performing Lab: Notes/Report: Test performed by [facility] , [address], [place] [address] Scotty Farrell MD, Java Core Developer CLIA: [id number] Uric Acid 3.9 3.4-8.0 mg/dL P-Microalbumin/Creatinine, R andom Urine Sample Reviewed date:12/17/2023 08:59:12 AM Interpretation:Normal Performing Lab: Notes/Report: Test performed by [facility] , [place] [address] Scotty Farrell MD, Java Core Developer CLIA: [id number] Albumin/Creatinine Ratio, Urine 6 0-30 ug/mg Microalbumin, Urine, Random 0.3 Creatinine, Urine 52.9 P-PSA Reviewed date:12/17/2023 08:59:12 AM Interpretation:Normal Performing Lab: Notes/Report: Test performed by [facility] , [place] [address] Scotty Farrell MD, Java Core Developer CLIA: [id number] PSA 0.34 <4.00 ng/mL Please note this is an ultrasensitive PSA assay with a lower limit of detection of 0.014 ng/mL. This test is performed by the Jordan ECLIA methodology. Values obtained with different assay methods or kits cannot be directly compared. P-Lipid Panel Reviewed date:12/17/2023 08:59:12 AM Interpretation:chol 263, trigs 1207, hdl 33, chol/hdl 7.97, non-hdl 230 Performing Lab: Notes/Report: Test performed by [facility] , [place] [address] Scotty Farrell MD, Java Core Developer CLIA: [id number] Cholesterol 263 <200 mg/dL Triglycerides 1207 <150 mg/dL HDL Cholesterol 33 >39 mg/dL Cholesterol / HDL Ratio 7.97 0.00-4.99 Ratio Non-HDL Cholesterol 230 <130 mg/dL LDL Cholesterol (Calculation) SEE COMMENT <130 mg/dL LDL Cholesterol Levels* Less than 100 mg/dL Optimal 100 to 129 mg/dL Near Optimal/ Above Optimal 130 to 159 mg/dL Borderline High 160 to 189 mg/dL High 190 mg/dL and above Very High * Categories as recommended by the 2004 ATPIII guidelines Unable to calculate due to Triglycerides >400 mg/dL LDL/HDL Ratio SEE COMMENT <3.3 Ratio Unable to calculate due to Triglycerides >400 mg/dL LDL Cholesterol Patient History Test Date: 12/12/2023 LDL Results: SEE COMMENT Units: mg/dL % Change: - P-Comprehensive Metabolic Pa trinity (CMP) Reviewed date:12/17/2023 08:59:12 AM Interpretation:gluc 172 Performing Lab: Notes/Report: Test performed by [facility], [address] , [address], [place] [address] Scotty Farrell MD, Java Core Developer CLIA: [id number] Sodium 136 135-145 mEq/L Potassium 4.6 3.5-5.3 mEq/L Chloride 102 97-108 mEq/L CO2 22 22-32 mEq/L Glucose 172 65-99 mg/dL BUN 19 6-20 mg/dL Creatinine 0.81 0.70-1.30 mg/dL Calcium 9.2 8.6-10.4 mg/dL eGFR by Creatinine 102 >59 mL/min/1.73m2 Protein 7.1 6.0-8.3 g/dL Albumin 4.5 3.5-5.3 g/dL Alkaline Phosphatase 107 40-129 IU/L ALT (SGPT) 44 <5-55 IU/L AST (SGOT) 36 <5-46 IU/L Bilirubin, Total 0.4 <0.2-1.2 mg/dL A/G Ratio 1.7 1.1-2.5 mg/dL Glycohemoglobin A1c (in hous e) Reviewed date:12/17/2023 08:59:12 AM Interpretation:10.4% Performing Lab: Notes/Report: 10.4% glycohemoglobin 10.4% 5 - 6.5 % Covid test (in house) Reviewed date:11/04/2023 08:57:58 PM Interpretation:Negative Performing Lab: Notes/Report: Negative Result: Neg CBC Fingerstick (in house) Reviewed date:11/04/2023 08:58:29 PM Interpretation: Performing Lab: Notes/Report: wbc 5.4 3.5 - 10 lym 28.5 15 - 50 mid 5.0 2 - 15 gran 66.5 35 - 80 rbc 5.20 3.5 - 5.5 hgb 16.1 11.5 - 16.5 hct 49.2 35 - 55 mcv 94.4 75 - 100 mch 30.9 25 - 35 mchc 32.7 31 - 38 plat 97 100 - 400 Influenza Screen (in house) Reviewed date:11/04/2023 08:58:15 PM Interpretation:Negative Performing Lab: Notes/Report: Negative results Neg MEDICATIONS Medication SIG (Take, Route, Frequency, Duration) Notes Start Date End Date Status Allopurinol 300 MG TAKE 1 TABLET BY MOUTH EVERY DAY Active Glimepiride 2 MG 1 tab(s) Orally Two times a day Active Nitroglycerin 0.4 MG 1 Sublingual prn chest pain; may repeat in 5 min x 2 05/26/2024 Active Rosuvastatin Calcium 20 MG TAKE 1 TABLET BY MOUTH EVERY DAY Active Ramipril 10 MG TAKE 1 CAPSULE BY MOUTH EVERY DAY Active Farxiga 10 MG 1 tablet Orally Once a day Active Fenofibrate 145 MG TAKE 1 TABLET BY MOUTH EVERY DAY Active CeleBREX 200 MG TAKE 1 CAPSULE BY MOUTH ONCE DAILY WITH FOOD Active Dicyclomine HCl 20 MG 1 tablet Orally Three times a day, prn Active Celecoxib 200 MG TAKE 1 CAPSULE BY MOUTH ONCE DAILY WITH FOOD for 90 Active TrueTrack Test - 1 strip test 2 times a day or as directed 10/26/2015 Active Montelukast Sodium 10 MG TAKE 1 TABLET BY MOUTH EVERY DAY FOR 30 DAYS for 90 Active Accu-Chek Marley Plus 1 STRIP ONCE DAILY *Please review and pick correct strength-formulatio n from Nosto options. If intended option is not shown, discontinue and re-order from Quick Search* 02/08/2022 Active Medifocus Ultra 2 w/Device USE TO CHECK BLOOD GLUCOSE EVERY DAY for 30 Active Venlafaxine HCl ER 150 MG TAKE 1 CAPSULE BY MOUTH EVERY DAY for 90 Active metFORMIN HCl ER 500 MG TAKE 2 TABLETS BY MOUTH TWICE DAILY Active IMMUNIZATIONS Vaccine Route Administration Date Status Comme nts xFlu shot- 6months-36 months of ptm-SYIL-GMMD-trivalent Unknown 04/01/2016 Administered xFlu shot- 6months-36 months of agz-ZWPZ-KQZH-trivalent Unknown 03/28/2017 Administered Tetanus Tdap-Adacel (over 7yrs) IM Intramuscular 12/10/2017 Administered Tetanus Tdap-Adacel (over 7yrs) Unknown 12/10/2017 Administered PNEUMOVAX 23 VACCINE IM Intramuscular 11/10/2018 Administe red Fluzone PF Quad (6-35 months) Unknown 04/10/2018 Administered Fluzone PF Quad (6-35 months) Unknown 04/09/2019 Administered Fluzone PF Quad (6-35 months) Unknown 03/17/2020 Administered Fluzone PF Quad (6-35 months) Unknown 04/05/2021 Administered Fluzone PF Quad (6-35 months) Unknown 03/29/2022 Administered SOCIAL HISTORY Sex Assigned At : Social History Observation Description Sex Assigned At Unknown PROBLEMS Problem Type ICD Code Onset Dates Problem Status W/U Status Risk SNOMED Code Notes Problem Essential hypertension (I10) Active confirmed 09938855 Problem Hypertriglyceridemia (E78.1) Active confirmed Hypertriglyceri demia (842609236) Problem Piriformis syndrome of left side (G57.02) Active confirmed [id number] 6 Problem Depression with anxiety (F41.8) Active confirmed 982887964 Problem Type 2 diabetes mellitus with hyperglycemia (E11.65) Active confirmed 24579541 Problem Pure hypercholesterolemia (E78.0) Active confirmed Pure hypercholesterolemia (803427845) Problem Lumbago with sciatica, left side (M54.42) Active confirmed Sciatica (23113093) Problem Balanitis (N48.1) Active confirmed 4488 2002 Problem Type 2 diabetes mellitus without complication (E11.9) Active confirmed 70304799 Problem Polyarthritis (M13.0) Active confirmed Polyarthritis (017927417) Problem ETOH abuse (F10.10) Active confirmed Et hanol abuse (36541588) Problem Dyslipidemia (E78.5) Active confirmed D yslipidemia (535075756) Problem Elevated triglycerides with high cholesterol (E78.2) Active confirmed Mixed hyperlipi demia (575118849) Problem Type 2 diabetes mellitus with hyperglycemia, without long-term current use of insulin (E11.65) Active confirmed 69360206 Problem Seasonal allergic rhinitis, unspecified allergic rhinitis trigger (J30.2) Active confirmed 714899441 Problem Tobacco use disorder (F17.200) Active confirmed Tobacco use (471487926) Problem Irregular cardiac rhythm (I49.9) Active confirmed Cardiac arrhy thmia (304019659) VITAL SIGNS Heart Rate 77 /min 12/12/2023 Blood pressure diastolic 64 mm Hg 05/26/2024 Height 70 in 05/26/2024 Blood pressure systolic 120 mm Hg 05/26/2024 Weight 217.0 lbs 05/26/2024 BMI 31.13 kg/m2 05/26/2024 Encounters Encounter Location Date Provider Diagnosis [facility] [address] [place], [place] [id number] 06/26/2023 Bre Zhangkatherine [facility] [address] [place], [place] [id number] 11/04/2023 Radha Posadas Bronchitis J40 [facility] [address] [place], [place] [id number] 11/14/2023 [facility] [address] [place] [address] [place] [id number] 12/12/2023 Simone Gonzales Type 2 diabetes fer itus without complication E11.9 ; Depression with anxiety F41.8 ; Essential hypertension I10 ; Dyslipidemia E78.5 ; Screening for prostate cancer Z12.5 and Hyperuricemia E79.0 [facility] [address] [place] [address] [place] [id number] 12/17/2023 Simone Gonzales Type 2 diabetes fer itus without complication E11.9 and Dyslipidemia E78.[address] [id number] 05/26/2024 Radha Posadas Headache, unspecified R51.9 ; Irregular cardiac rhythm I49.9 ; Polyarthritis M13.0 ; ETOH abuse F10.10 ; Tobacco use disorder F17.200 ; Chest pain R07.9 ; Type 2 diabetes mellitus without complication E11.9 ; Essential hypertension I10 ; Hyperuricemia E79.0 and Pure hypercholesterolemia E78.0 [facility] [address] [place] [address] [place], [place] [id number] 06/04/2024 Simone Gonzales ASSESSMENTS Encounter Date Diagnosis Assessment Notes Treatment Notes Treatment Clinical Notes 05/26/2024 Irregular cardiac rh ythm (ICD-10 - I49.9) discussed with DR. Gonzales 05/26/2024 Headache, unspecifie d (ICD-10 - R51.9) discussed causative factors 12/17/2023 Type 2 diabetes fer itus without complication (ICD-10 - E11.9) 12/12/2023 Depression with anxi ety (ICD-10 - F41.8) 12/12/2023 Type 2 diabetes fer itus without complication (ICD-10 - E11.9) He is having symptoms of uncontrolled blood sugar with polyuria, polydipsia, and blurred vision. Will await labs and adjust medication as needed. Also recommend he see his eye doctor for checkup. 11/04/2023 Bronchitis (ICD-10 - J40) fl uids, rest, supportive measures for fever/symptom relief 12/17/2023 Dyslipidemia (ICD-10 - E78.5) 12/12/2023 Essential hypertensi on (ICD-10 - I10) 05/26/2024 Polyarthritis (ICD-1 0 - M13.0) 05/26/2024 ETOH abuse (ICD-10 - F10.10) discussed decreasing ETOH intake 12/12/2023 Dyslipidemia (ICD-10 - E78.5) 12/12/2023 Screening for prosta te cancer (ICD-10 - Z12.5) 05/26/2024 Tobacco use disorder (ICD-10 - F17.200) He chews tobacco; discussed tobacco cessation 05/26/2024 Chest pain (ICD-10 - R07.9) to see cardiology at 130 pm today 12/12/2023 Hyperuricemia (ICD-1 0 - E79.0) 05/26/2024 Type 2 diabetes fer itus without complication (ICD-10 - E11.9) has been taking only 2 metformin in the AM and no PM dose; will try to remember to take HS dose; 05/26/2024 Essential hypertensi on (ICD-10 - I10) 05/26/2024 Hyperuricemia (ICD-1 0 - E79.0) 05/26/2024 Pure hypercholestero lemia (ICD-10 - E78.0) 05/26/2024 Other has cardiology appt at 130 pm today; will have EKG done at [facility]; discussed when to go to the ER PLAN OF TREATMENT Pending Test Test Name Order Date EKG 05/26/2024 Cologuard 06/15/2024 P-Troponin I 05/26/2024 Insurance Providers Payer Name Payer Address Payer Phone Subscriber Number Group Number Insured Name Patient Relationship to Insured Coverage Start Date Coverage End Date [employer] [address] [place] [address] [id number] MARY OWUSU Self - patient is the insured MEDICATIONS ADMINISTERED Medication Instructions Date of Administration Dosage Notes Depo- Medrol 40 mg/ml 02/08/2022 1 mL Depo- Medrol 40 mg/ml 05/14/2022 1.5 mL MEDICAL (GENERAL) HISTORY Medical History History ICD Code Seasonal Allergies Heart Murmur Hypertension Hyperlipidemia Hyperuricemia Impaired Fasting Glucose HDL Deficiency Testosterone dDeficiency Vitamin D Deficiency Sleep Apnea Hypersomnolence Depression Type 2 diabetes, 07/02/2014 Surgical History Surgery Date(Month/Year) Hospitalization History Reason Date(Month/Year)
--- OUTSIDE RECORDS SUMMARY | 2024-06-23 22:38 | XMS_ITS ---
Author Organization [facility] Address [address] [facility] [address] [place] [id number] Care Team Providers Care Resort Keeper Name Role Phone Simone Gonzales Primary Care Provider [phone] Radha Posadas Unavailable [phone] ALLERGIES Allergen (clinical drug ingredient) Drug/Non Drug [...] 5 - 6.5 % P-Comprehensive Metabolic Pa trniity (CMP) Reviewed date:06/02/2024 09:28:09 AM Interpretation:gluc 242, bun 21 Performing Lab: Notes/Report: Test performed by [facility] , [address], [place] [address] Scotty Farrell MD, Forestry Technical Officer CLIA: [id number] Sodium 136 135-145 mmol/L Potassium 4.9 3.5-5.3 [...] Interpretation:Normal Performing Lab: Notes/Report: Test performed by [facility] [address] [place] [address] , [place] [address] Scotty Farrell MD, Forestry Technical Officer CLIA: [id number] Creatine Kinase 74 20-200 U/L CK MB Fraction 2.3 <7.7 ng/mL S-Jlzspkcy-J Reviewed date:06/02/2024 09:27:45 AM Interpretation:Normal Performing Lab: Notes/Report: Test performed by [facility] [address] [place] [address] , [place] [address] Scotty Farrell MD, Forestry Technical Officer CLIA: [id number] Troponin-T 14 <6-18 ng/L Patients who are prescribed biotin may exhibit elevated troponin results. Please interpret results accordingly. P-TSH Reviewed date:06/02/2024 09:28:50 AM Interpretation:3.26 Performing Lab: Notes/Report: Test performed by [facility] [address] [place] [address] , [address], [place] [address] Scotty Farrell MD, Forestry Technical Officer CLIA: [id number] TSH 3.26 0.43-5.25 mU/L P-Uric Acid Reviewed date:06/02/2024 09:27:03 AM Interpretation:3.1 Performing Lab: Notes/Report: Test performed by [facility] [address] [place] [address] , [address], [place] [address] Scotty Farrell MD, Forestry Technical Officer CLIA: [id number] Uric Acid 3.1 3.4-8.0 mg/dL REASON FOR REFERRAL Diagnosis 1 Irregular cardiac rh ythm (I49.9) [facility] Referring Provider First Name Radha Referring Provider Last Name Cuauhtemoc Referring Provider Speciality Family Pra ctice Referred Provider Cardiology, . Referred Provider Specialty Cardiovascul ar Disease General Notes Radha Posadas 11:21:52 AM > CP; irregular HB;++ Family HX, Eusebia He 05/26/2024 11:43:35 AM > 05/26/2024 at 01:15pm Referral Priority Routine REASON FOR VISIT light headed MEDICATIONS Medication SIG (Take, Route, Frequency, Duration) Notes Start Date End Date Status Allopurinol 300 MG TAKE 1 TABLET BY MOUTH EVERY DAY Active Hugo [employer] Debra Natural 2 w/Device USE TO CHECK BLOOD GLUCOSE EVERY DAY for 30 Active Nitroglycerin 0.4 MG 1 Sublingual prn chest pain; may repeat in 5 min x 2 05/26/2024 Active Celecoxib 200 MG TAKE 1 CAPSULE BY MOUTH ONCE DAILY WITH FOOD for 90 Active Montelukast Sodium 10 MG TAKE 1 TABLET BY MOUTH EVERY DAY FOR 30 DAYS for 90 Active Venlafaxine HCl ER 150 MG TAKE 1 CAPSULE BY MOUTH EVERY DAY for 90 Active CeleBREX 200 MG TAKE 1 CAPSULE BY MOUTH ONCE DAILY WITH FOOD Active Dicyclomine HCl 20 MG 1 tablet Orally Three times a day, prn Active TrueTrack Test - 1 strip test 2 times a day or as directed 10/26/2015 Active Accu-Chek Marley Plus 1 STRIP ONCE DAILY *Please review and pick correct strength-formulatio n from ascentifyan options. If intended option is not shown, [...] tab(s) Orally Two times a day Active PROBLEMS Problem Type ICD Code Onset Dates Problem Status W/U Status Risk SNOMED Code Notes Problem Irregular cardiac rhythm (I49.9) Active confirmed Cardiac arrhy thmia (825826299) Problem Polyarthritis (M13.0) Active confirmed Polyarthritis (435010904) Problem ETOH abuse (F10.10) Active confirmed Et hanol abuse (88115806) Problem Tobacco use disorder (F17.200) Active confirmed Tobacco use (942110210) Problem Pure hypercholesterolemia (E78.0) Active confirmed Pure hypercholesterolemia (026132046) VITAL SIGNS Weight 217.0 lbs 05/26/2024 Blood pressure systolic 120 mm Hg 05/26/20 24 Blood pressure diastolic 64 mm Hg 024 Height 70 in 05/26/2024 BMI 31.13 kg/m2 05/26/2024 Encounters Encounter Location Date Provider Diagnosis [facility] [address] [facility] [address] [place] [address], [place] [id number] 05/26/2024 Radhacydney Posadas Headache, unspecified R51.9 ; Irregular cardiac rhythm I49.9 ; Polyarthritis M13.0 ; ETOH abuse F10.10 ; Tobacco use disorder F17.200 ; Chest pain R07.9 ; Type 2 diabetes mellitus without complication E11.9 ; Essential hypertension I10 ; Hyperuricemia E79.0 and Pure hypercholesterolemia E78.0 ASSESSMENTS Encounter Date Diagnosis Assessment Notes Treatment Notes Treatment Clinical Notes 05/26/2024 Headache, unspecifie d (ICD-10 - [...] pm today; will have EKG done at [facility]; discussed when to go to the ER PLAN OF TREATMENT Medication Medication Name Sig Start Date Stop [...] pm today; will have EKG done at [facility]; discussed when to go to the ER Pending Test Test Name Order Date EKG 05/26/2024 P-Troponin I 05/26/2024 Referrals Referral Date Details . Cardiology Next Appt Details Follow Up: prn,will notify o f test results, Reason: Progress Notes * Examination Category Sub-Category Detail Notes General Examination HEENT: sclera and c onjunctiva clear, PERRLA, Heart: irregular rhythm Lungs: CTAB [...] Chest: left chest wall sore with palpation History and Physical Notes * HPI (History of Present Illness) Category Sub-Category Detail Notes Cardiology Chest Pain left chest hurts to rub Dizziness Fatigue Pt is here today wit h c/o feeling light headed. Pt sts he has had a headache, chest pain, numbness and sts that everything in his body hurts and sts this has all been going on for 2 weeks. 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
--- OUTSIDE RECORDS SUMMARY | 2024-06-23 22:38 | XMS_ITS ---
Author Organization [facility] Address [address] [facility] [address] [place] [id number] Care Team Providers Care Inhalation Therapy Teacher Name Role Phone Simone Gonzales Primary Care Provider REASON FOR VISIT Test results MEDICATIONS Medication SIG (Take, Route, Frequency, Duration) Notes Start Date End Date Status Glimepiride 2 MG 1 tab(s) Orally Two times a day Active Rosuvastatin Calcium 40 MG 1 tab(s) Oral ly once daily Active metFORMIN HCl ER 500 MG TAKE 2 TABLETS B Y MOUTH TWICE DAILY for 90 days Active Encounters Encounter Location Date Provider Diagnosis [facility] [address] [place] [id number] 12/17/2023 Simone Gonzales Type 2 diabetes mellitus without complication E11.9 and Dyslipidemia E78.5 ASSESSMENTS Encounter Date Diagnosis Assessment Notes Treatment Notes Treatment Clinical Notes 12/17/2023 Type 2 diabetes mellitus without complication (ICD-10 - E11.9) 12/17/2023 Dyslipidemia (ICD-10 - E78.5) PLAN OF TREATMENT Medication Medication Name Sig Start Date Stop Date Notes Glimepiride 2 MG 1 tab(s) Orally Two times a day Rosuvastatin Calcium 40 MG 1 tab(s) Orally once daily metFORMIN HCl ER 500 MG TAKE 2 TABLETS B Y MOUTH TWICE DAILY for 90 days
== END 2024-06-23 13:21 | disposition home or self-care (01) ==
PROVIDERS: PCP Family Medicine; Visit Provider Internal Medicine
DX: I20.89 Other forms of angina pectoris (principal); R94.39 Abnormal result of other cardiovascular function study; I10 Essential (primary) hypertension; E78.5 Hyperlipidemia, unspecified; Z82.49 Family history of ischemic heart disease and other diseases of the circulatory system; I48.91 Unspecified atrial fibrillation; Z79.84 Long term (current) use of oral hypoglycemic drugs; Z79.899 Other long term (current) drug therapy; F17.210 Nicotine dependence, cigarettes, uncomplicated; I42.9 Cardiomyopathy, unspecified
CPT/HCPCS: 80048; 85025; 93458; 99152; C1725; C1769; J1200; J1644; J2250; J3010; Q9967

== ENCOUNTER 2024-06-30 09:47 | Outpatient (CLI) | payer BC, SELFPAY ==
[2024-06-30 10:06] LABS: Basophils # 0.1 K/mm3 (0-0.2); Basophils % 1.6 % (0.1-2.0); Eosinophils # 0.3 K/mm3 (0.0-0.4); Eosinophils % 5.4 % (0.1-12.0); Hematocrit 43.3 % (42.0-52.0); Hemoglobin 13.9 g/dL (14.1-18.0); Lymphocytes # 1.4 K/mm3 (0.7-4.5); Lymphocytes % 24.3 % (10-50); Mean Corpuscular HGB Conc 32.2 g/dL (31.8-35.4); Mean Corpuscular Hemoglobin 30.6 pg (27.0-31.2); Mean Corpuscular Volume 95.2 fl (80-94); Mean Platelet Volume 8.3 fl (7.4-10.4); Monocytes # 0.3 K/mm3 (0.1-1.0); Monocytes % 4.6 % (1.7-9.3); Neutrophils # 3.7 K/mm3 (1.8-7.8); Neutrophils % 64.1 % (37.0-80.0); Platelet Count 183 K/mm3 (142-424); Red Blood Count 4.55 M/mm3 (4.60-6.20); Red Cell Distribution Width 13.6 % (11.5-17.5); White Blood Count 5.8 K/mm3 (4.8-10.8)
[2024-06-30 11:14] LABS: Anion Gap 12.7 mEq/L (5-15); Blood Urea Nitrogen 19 mg/dl (9-20); Calcium 9.4 mg/dl (8.4-10.2); Carbon Dioxide 25 mmol/L (22.0-30.0); Chloride 104 mmol/L (98-107); Estimated Glomerular Filt Rate 86 ml/min (>60); GFR (African American) 105 ML/MIN (>60); Glucose 339 mg/dl (74-100); Potassium 4.7 mmoL/L (3.5-5.1); Sodium 137 mmol/L (136-145)
== END 2024-06-30 23:59 | disposition home or self-care (01) ==
LOC: LAB 09:48
PROVIDERS: PCP Family Medicine; Visit Provider Physician Assistant
DX: I25.10 Atherosclerotic heart disease of native coronary artery without angina pectoris (principal); R53.83 Other fatigue; R42 Dizziness and giddiness; E11.9 Type 2 diabetes mellitus without complications; Z72.0 Tobacco use; Z79.84 Long term (current) use of oral hypoglycemic drugs
CPT/HCPCS: 36415; 80048; 85025

== ENCOUNTER 2025-01-07 08:32 | Outpatient (CLI) | payer BC, SELFPAY ==
--- OUTSIDE RECORDS SUMMARY | 2024-09-17 10:00 | XMS_ITS ---
[facility] Address [address] [facility] [address] [place] [id number] Care Team Providers Care Car Deliverer Name Role Phone Simone Gonzales Primary Care Provider Bre Gardner Unavailable [phone] Allergies Allergen (clinical drug ingredient) Drug/Non Drug [...] Orally Three times a day, prn Active Takepin Ultra 2 w/Device USE TO CHECK BLOOD [...] EVERY DAY; Duration: 90 Active Vital Signs Blood pressure systolic 130 mm Hg 09/18/19 25 Blood pressure diastolic 74 mm Hg 025 Heart Rate 78 /min 09/17/2024 Height 70 in 09/17/2024 Weight 222 lbs 09/17/2024 BMI 31.85 kg/m2 09/17/2024 Encounters Encounter Location Date Provider Diagnosis [facility] [address] [place] [phone] 09/17/2024 Bre Gardner Influenza A J10. 1 [...] Next Appt Details Follow Up: prn, Reason: Provider Name:Simone Bishop, 01/07/2025 02:30:00 PM, [address], [address], [place], [phone], Progress Notes * MARY OWUSUDOB:1965 (59 yo M)Acc No.[id number]:09/17/2024 Progress Notes Patient: MARY MORENO Provider: AZUL Hutchinson :1965 A ge:59 Y S ex:Male Date:09/17/2024 Address:[address] [place] [address] [phone] Pcp:Simone Gonzales Subjective: * Chief Complaints: * [...] detector use: yes. Marital Status: . 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 Past smoking status: no, smokeless tobacco since [...] CAPSULE BY MOUTH EVERY DAY , Taking OneTouch [...] auscultation bilaterally. Assessment: * Assessment: 1. I sara A - J10.1 (Primary) Plan: * Treatment: [...] * Procedure Codes: 9 4760 [place], [address] Flu Test- Nasal Swab, Modifiers: QW , 3075F SYST BP GE 130 - 139MM HG, 3078F DIAST BP < 80 MM HG * Follow Up: p rn * Images: Billing Information: * Visit Code: 10501 Office Visit, Est Pt., Level 3. * Procedure Codes: [address] [place] [address] Flu Test- Nasal Swab. Modifiers: QW 3075F SYST BP GE 130 - 139MM HG. 3078F DIAST BP < 80 MM HG. * Electronic signature of AZUL Mg on 01/07/2025 at 08:42 AM EDT Sign off status: Pending * Provider: AZUL Hutchinson Date: 0 09/17/2024 Generated for Nettie meier/Trav/eTransmitting on: 0 01/07/2025 08:42 AM EDT History and Physical Notes * HPI (History [...]
--- OUTSIDE RECORDS SUMMARY | 2024-10-14 10:45 | XMS_ITS ---
[facility] [place] [place] Address [address] [facility] [address] [id number] Care Team Providers Care Instrument Checker Name Role Phone Simone Gonzales Primary Care Provider [phone] Ruben Hewitt Unavailable [phone] Allergies Allergen (clinical drug ingredient) Drug/Non Drug [...] 1 Gross hematuria (R31 .0) [facility] Referring Provider First Name Ruben Referring Provider [...] MANUELA TH EVERY DAY; Duration: 90 Active Terra [employer]uch Ultra 2 w/Device USE TO CHECK B [...] day; Duration: 30 day(s) Active Vital Signs Blood pressure systolic 134 mm Hg 10/15/19 25 Blood pressure diastolic 74 mm Hg 025 Heart Rate 115 /min 10/14/2024 Height 70 in 10/14/2024 Weight 225.4 lbs 10/14/2024 BMI 32.34 kg/m2 10/14/2024 Encounters Encounter Location Date Provider Diagnosis [facility] [address] [facility] [address] [place] [id number] 10/14/2024 Ruben Hewitt Gross hematuria R31. 0 Assessments Encounter Date Diagnosis (ICD Code) Assessment Notes Treatment Notes Treatment Clinical Notes Section Notes 10/14/2024 Gross hematuria (ICD-10 - R31.0) Plan Of Treatment Referrals Referral Date Details 10/14/2024 10/14/2024, Tapan Salmeron Appt Details Follow Up: via phone to repo rt progress, Reason: Provider Name:Simone Bishop, 01/07/2025 02:30:00 PM, [address] [facility] [address], [place], [id number], Progress Notes * MARY OWUSUDOB:1965 (59 yo M)Acc No.[id number]:10/14/2024 Progress Notes Patient: MARY MORENO Provider: Michael Hewitt M.D. :1965 A ge:59 Y S ex:Male Date:10/14/2024 Address:[address] [place] [address] [id number] Pcp:Simone Gonzales Subjective: * Chief Complaints: * [...] detector use: yes. Marital Status: . 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 Past smoking status: no, smokeless tobacco [...] CAPSULE BY MOUTH EVERY DAY , Taking TSCA Ultra 2 w/Device Kit USE TO CHECK [...] 10/14/2024 5:31:53 PM > ? Referral To:Tapan Aguilar??Urology ?Reason: * Procedure Codes: 8 1002 Urinalysis, no micro, 3075F SYST BP GE 130 - 139MM HG, 3078F DIAST BP < 80 MM HG * Follow Up: v ia phone to report progress * Images: Billing Information: * Visit Code: 99084 Office Visit, Est Pt., Level 3. * Procedure Codes: 15390 Urinalysis, no micro. 3075F SYST BP GE 130 - 139MM HG. 3078F DIAST BP < 80 MM HG. * Electronic signature of Cira Hewitt MD on 01/07/2025 at 08:42 AM EDT Sign off status: Pending * Provider: Michael Hewitt M.D. Date: 0 10/14/2024 Generated for Donnai renea/Trav/eTransmitting on: 0 01/07/2025 08:42 AM EDT History [...]
--- OUTSIDE RECORDS SUMMARY | 2025-01-07 08:47 | XMS_ITS | Patient Health Record ---
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 Apprentice Name Role Phone Simone Gonzales Primary Care Provider Ruben Hewitt Unavailable [phone] Radha Posadas Unavailable [phone] Bre Gardner Unavailable [phone] Allergies Allergen (clinical drug ingredient) Drug/Non Drug Allergy documented on EMR Reaction Allergy Type Onset Date Status Penicillin hives Drug Allergy Active Results Component Value Reference Range Notes Influenza Screen (in house) Reviewed date:09/18/2024 08:37:51 AM Interpretation: Performing Lab: Notes/Report: results Pos A Urinalysis - Inhouse Reviewed date:10/14/2024 05:31:58 PM Interpretation: Performing Lab: Notes/Report: Color/Clarity yellow/clear Leuk Neg Nitrite Neg Urobili 3.2 Protein Neg pH 5.5 Blood Neg Sp. Gr. 1.010 Ketone Neg Bili Neg Gluc 2+ P-Uric Acid Reviewed date:06/02/2024 09:27:03 AM Interpretation:3.1 Performing Lab: Notes/Report: Test performed by [facility] [address] [place], [place] [address] , [place] [address] Scotty Farrell MD, Track Laminating Machine Tender CLIA: [id number] Uric Acid 3.1 3.4-8.0 mg/dL P-TSH Reviewed date:06/02/2024 09:28:50 AM Interpretation:3.26 Performing Lab: Notes/Report: Test performed by [facility] [address] [place], [place] [address] , [address], [place] [address] Scotty Farrell MD, Track Laminating Machine Tender CLIA: [id number] TSH 3.26 0.43-5.25 mU/L Q-[id number] Reviewed date:06/02/2024 09:27:45 AM Interpretation:Normal Performing Lab: Notes/Report: Test performed by [facility] [address] [place] [address] , [address], [place] [address] Scotty Farrell MD, Track Laminating Machine Tender CLIA: [id number] Troponin-T 14 <6-18 ng/L Patients who are prescribed biotin may exhibit elevated troponin results. Please interpret results accordingly. P-CPK and CKMB Reviewed date:06/02/2024 09:28:30 AM Interpretation:Normal Performing Lab: Notes/Report: Test performed by [facility] [address] , [address], [place] [address] Scotty Farrell MD, Track Laminating Machine Tender CLIA: [id number] Creatine Kinase 74 20-200 U/L CK MB Fraction 2.3 <7.7 ng/mL P-Comprehensive Metabolic Pa trinity (CMP) Reviewed date:06/02/2024 09:28:09 AM Interpretation:gluc 242, bun 21 Performing Lab: Notes/Report: Test performed by [facility] [address] [place] [address] , [address], [place] [address] Scotty Farrell MD, Track Laminating Machine Tender CLIA: [id number] Sodium 136 135-145 mmol/L Potassium 4.9 3.5-5.3 [...] 0.4 <0.2-1.2 mg/dL A/G Ratio 1.3 1.1-2.5 Glycohemoglobin A1c (in hous e) Reviewed date:05/26/2024 11:27:04 AM Interpretation:8.4% Performing Lab: Notes/Report: 8.4% glycohemoglobin 8.4% 5 - 6.5 % CBC Venipuncture (in house) Reviewed date:05/26/2024 11:27:35 [...] - 38 platlet 260 100 - 400 Glucose (In-House) Reviewed date:05/26/2024 11:27:21 AM Interpretation:258 Performing Lab: Notes/Report: 258 blood glucose 258 74 - 106 mg/dL Mary Reviewed date:08/04/2024 08:36:58 AM Interpretation:Negative Performing Lab: Notes/Report: Negative Medications Medication SIG (Take, Route, Frequency, Duration) Notes Start Date End Date Status Glimepiride 2 MG take 1 tablet Orally twice a day; Duration: 90 days Active Fenofibrate 145 MG 1 tablet Orally Once a day; Duration: 30 days patient needs an appointment Active Allopurinol 300 MG TAKE 1 TABLET BY MOUTH EVERY DAY Once a day; Duration: 30 days Active [employer] 2 w/Device USE TO CHECK BLOOD GLUCOSE EVERY DAY; Duration: 30 Active Montelukast Sodium 10 MG TAKE 1 TABLET BY MOUTH EVERY DAY FOR 30 DAYS; Duration: 90 Active Accu-Chek Marley Plus 1 STRIP ONCE DAILY 02/08/2022 Active Venlafaxine HCl ER 150 MG TAKE 1 CAPSULE BY MOUTH EVERY DAY; Duration: 90 Active TrueTrack Test - 1 strip test 2 times a day or as directed 10/26/2015 Active Farxiga 10 MG TAKE 1 TABLET BY MOUTH EVERY DAY; Duration: 90 Active Celecoxib 200 MG 1 capsule as needed Orally Once a day; Duration: 30 days Active Metoprolol Succinate ER 100 MG 1 tablet Orally Once a day; Duration: 30 day(s) Active Rosuvastatin Calcium 40 MG TAKE 1 TABLET BY MOUTH EVERY DAY; Duration: 90 Active Xarelto 20 MG 1 tablet with food Orally Once a day; Duration: 30 day(s) Active Nitroglycerin 0.4 MG 1 Sublingual prn chest pain; may repeat in 5 min x 2 05/26/2024 Active metFORMIN HCl ER 500 MG 2 tab(s) Orally Two times a day; Duration: 30 days Active Immunizations Vaccine Route Administration Date Status Comme nts Fluzone PF Quad (6-35 months) Unknown 04/10/2018 Administered Fluzone PF Quad (6-35 months) Unknown 04/09/2019 Administered Fluzone PF Quad (6-35 months) Unknown 03/17/2020 Administered Fluzone PF Quad (6-35 months) Unknown 04/05/2021 Administered Fluzone PF Quad (6-35 months) Unknown 03/29/2022 Administered PNEUMOVAX 23 VACCINE IM Intramuscular 11/10/2018 Administe red Tetanus Tdap-Adacel (over 7yrs) IM Intramuscular 12/10/2017 Administered Tetanus Tdap-Adacel (over 7yrs) Unknown 12/10/2017 Administered xFlu shot- 6months-36 months of atl-URDC-SYSI-trivalent Unknown 04/01/2016 Administered xFlu shot- 6months-36 months of idw-QMHT-VYDG-trivalent Unknown 03/28/2017 Administered Problems Problem Type SNOMED Code ICD Code Onset Dates Problem Status W/U Status Risk Notes Problem Essential hypertension (23747522) Essential hypertension (I10) Active confirmed Problem Hypertriglyceridemia (177221296) Hypertriglyceridemia (E78.1) Active confirmed Problem Sciatic nerve lesion (339350835) Piriformis syndrome of left side (G57.02) Active confirmed Problem Mixed anxiety and depressive disorder (379814493) Depression with anxiety (F41.8) Active confirmed Problem Hyperglycemia due to type 2 diabetes mellitus (614481974573218) Type 2 diabetes mellitus with hyperglycemia (E11.65) Active confirmed Problem Pure hypercholesterolemia (111574942) Pure hypercholesterolemia (E78.0) Active confirmed Problem Sciatica (03347410) Lumbago with sciatica, left side (M54.42) Active confirmed Problem Balanitis (69047546) Balanitis (N48.1) Active c onfirmed Problem Type II diabetes mellitus without complication (676989257) Type 2 diabetes mellitus without complication (E11.9) Active confirmed Problem Polyarthritis (042606147) Polyarthritis (M13.0) Active confirmed Problem Ethanol abuse (00483146) ETOH abuse (F10.10) Active confirmed Problem Dyslipidemia (047185781) Dyslipidemia (E78.5) Active confirmed Problem Mixed hyperlipidemia (913778649) Elevated triglycerides with high cholesterol (E78.2) Active confirmed Problem Hyperglycemia due to type 2 diabetes mellitus (225925821190143) Type 2 diabetes mellitus with hyperglycemia, without long-term current use of insulin (E11.65) Active confirmed Problem Seasonal allergic rhinitis (494117518) Seasonal allergic rhinitis, unspecified allergic rhinitis trigger (J30.2) Active confirmed Problem Tobacco use (621132069) Tobacco use disorder (F17.200) Active confirmed Problem Cardiac arrhythmia (270979373) Irregular cardiac rhythm (I49.9) Active confirmed Vital Signs Heart Rate 115 /min 10/14/2024 Blood pressure diastolic 74 mm Hg 10/14/2024 Height 70 in 10/14/2024 Blood pressure systolic 134 mm Hg 10/14/2024 Weight 225.4 lbs 10/14/2024 BMI 32.34 kg/m2 10/14/2024 Encounters Encounter Location Date Provider Diagnosis [facility] [address] [place], [place] [id number] 05/26/2024 Radha Posadas Headache, unspecified R51.9 ; Irregular cardiac rhythm I49.9 ; Polyarthritis M13.0 ; ETOH abuse F10.10 ; Tobacco use disorder F17.200 ; Chest pain R07.9 ; Type 2 diabetes mellitus without complication E11.9 ; Essential hypertension I10 ; Hyperuricemia E79.0 and Pure hypercholesterolemia E78.0 [facility] [address] [facility] [address] [place], [place] [id number] 09/17/2024 Bre Crowdy Influenza A J10.1 [facility] [address] [facility] [address] [place], [place] [id number] 10/14/2024 Ruben Fletcher Gross hematuria R31. 0 [facility] [address] [facility] [address] [place], [place] [id number] 08/04/2024 Simone Gonzales [facility] [address] [facility] [address] [place], [place] [phone] 12/14/2024 Simone Gonzales Assessments Encounter Date Diagnosis (ICD Code) Assessment Notes Treatment Notes Treatment Clinical Notes Section Notes 05/26/2024 Irregular cardiac rh ythm (ICD-10 - I49.9) discussed with DR. Gonzales 05/26/2024 Headache, unspecifie d (ICD-10 - R51.9) discussed causative factors 09/17/2024 Influenza A (ICD-10 - J10.1) Rest, fluids, tylenol or motrin for fevers. Home until fever free for 24-48 hours without the use of medication. Has cough medication at home. 10/14/2024 Gross hematuria (ICD -10 - R31.0) 05/26/2024 Polyarthritis (ICD-1 0 - M13.0) 05/26/2024 [...] pm today; will have EKG done at [facility]; discussed when to go to the ER Plan Of Treatment Pending Test Test Name Order Date EKG 05/26/2024 P-Troponin I 05/26/2024 Next Appt Details Provider Name:Simone Bishop, 01/07/2025 02:30:00 PM, [address] [facility], [address], [place], [id number], Insurance Providers Payer Name Payer Address Payer Phone Subscriber Number Group Number Insured Name Patient Relationship to Insured Coverage Start Date Coverage End Date SERGIO ARANDAUE [facility] [address] [place] [address] [id number] MARY OWUSU Self - patient is the insured Medications Administered Medication Instructions Date of Administration Dosage Notes Depo- Medrol 40 mg/ml 02/08/2022 1 mL Depo- Medrol 40 mg/ml 05/14/2022 1.5 mL Medical (General) History Medical History History ICD Code Seasonal Allergies Heart Murmur Hypertension Hyperlipidemia Hyperuricemia Impaired Fasting Glucose HDL Deficiency Testosterone dDeficiency Vitamin D Deficiency Sleep Apnea Hypersomnolence Depression Type 2 diabetes, 07/02/2014 Surgical History Surgery Date(Month/Year) Hospitalization History Reason Date(Month/Year)
--- OUTSIDE RECORDS SUMMARY | 2025-01-07 08:47 | XMS_ITS | Continuity of Care Document ---
Author Organization [facility] Address [address] [place] [address] Care Team Providers Care Bookkeeping Machine Mechanic Name Role Phone [facility] Primary Care Provider Assessment Encounter Date Assessment Date Assessment LastModified by Organization Details LastModified Time 11/24/2024 11/24/2024 ASSESSMENT: Mary Owusu is a 59-year-old male with a cyst on the right kidney and thickened bladder wall. PLAN: 1. Start tamsulosin (Flomax) to help with urination. The patient was advised to take the medication every night at bedtime to avoid potential side effects such as lightheadedness and reduced semen during ejaculation. 2. Follow-up in six months to reassess the condition. 3. The patient may experience pink urine due to the procedure, which is normal and not concerning. 4. Blood in the urine was likely from the prostate and is benign. Please note this report was created using voice recognition/text compilation software with [employer] documentation services during the encounter with the patient; Please excuse any errors due to the corporate travel coordinator process. [email or web address] Not available 11/24/2024 14:58:57 Plan of Treatment Reminders Order Date Submit Date Provider Last Modified By Organization Details Last Modified Time Details Appointments OV EST 15 2024 02:30P M EDEN GONZALEZ MD Not available Not available Not available Lab urinalysi s, dipstick 2024 025 [email or web address] [facility], [address] [facility] [address], [place], [address], 11/24/2024 14:58:35 Referral None recorded. Procedures None recorded. Surgeries None recorded. Imaging None recorded. Medication Orders tamsulosi n 0.4 mg capsule 2024 025 [facility][id number], [address] [place], [address], 11/24/2024 14:58:44 Patient TargetsNo targets recorded. Patient InstructionsNo instructions recorded. Reason for Referral None Reported. Results Created Date Observation Date Name Description Value Unit Range Abnormal Flag Note LastModifiedBy Organization Detail LastModifiedTime 11/25/19 25 11/24/2024 urina lysis , dipst ick Leukocytes (reference range) negati ve Not Available [place] [address] [address] [facility] [address], [place], [address], 11/24/2024 14:32:11 11/25/19 25 11/24/2024 urina lysis , dipst ick Nitrite (reference range:) negati ve Not Available [place] [address] [address] [facility] [address], [place], [address], 11/24/2024 14:32:11 11/25/19 25 11/24/2024 urina lysis , dipst ick Urobilinogen (reference range) 0.2 Not Available [place] [address] [address], [place], [address], 11/24/2024 14:32:11 11/25/19 25 11/24/2024 urina lysis , dipst ick Protein (reference range) negati ve Not Available [place] [address] [address] [facility] [address], [place], [address], 11/24/2024 14:32:11 11/25/19 25 11/24/2024 urina lysis , dipst ick pH (reference range 5-8.5) 6.0 Not Available [place] [address] [address] [facility] [address], [place], [address], 11/24/2024 14:32:11 11/25/19 25 11/24/2024 urina lysis , dipst ick Blood (reference range:) non-He molyze d: Trace Not Available [place] [address] [address], [address] [facility] [address], [place], [address], 11/24/2024 14:32:11 11/25/19 25 11/24/2024 urina lysis , dipst ick Specific Daniels (reference range) 1.010 Not Available [place] [address] [address], [address] [facility] [address], [place], [address], 11/24/2024 14:32:11 11/25/19 25 11/24/2024 urina lysis , dipst ick Ketone (reference range) negati ve Not Available [place] [address] [address], [address] [facility] [address], [place], [address], 11/24/2024 14:32:11 11/25/19 25 11/24/2024 urina lysis , dipst ick Bilirubin (reference range) modera te Not Available [place] [address] [address], [address] [facility] [address], [place], [address], 11/24/2024 14:32:11 11/25/19 25 11/24/2024 urina lysis , dipst ick Glucose (reference range) 2000+ Not Available [place] [address] [address], [address] [facility] [address], [place], [address], 11/24/2024 14:32:11 11/25/19 25 11/24/2024 urina lysis , dipst ick Color (reference range: yellow-brown ) Yellow Not Available [place] [address] [address], [address] [facility] [address], [place], [address], 11/24/2024 14:32:11 11/13/19 25 11/12/2024 CT ABD pel w/w/O [facility] [address] [place] [address] Phone: Fax: Name: MARY OWUSU Exam Date: 11/13/19 : 965 Age 59 years Gender : M Access ion: [id number] Physic katie: ART, EDEN Facili ty: [facility] Facili ty HSV: Outpat ient Exam: CT ABD PEL W/W/O EXAM DESCRI PTION: CT ABDOME N PELVIS WITHOU T THEN WITH IV CONTRA ST perfor med on 11/13/19 7:06 AM CDT. INDICA TION: gross hematu titi Additi onal Histor y: TECHNI QUE: CT abdome n and pelvis with axial, caldera l, and sagitt al multip lanar reform ations , perfor med with and withou t contra st. Dose modula tion, automa kendal exposu re contro l, and/or iterat avelina recons tructi on were used for dose reduct ion. CONTRA ST: 100 mL Isovue -370 IV COMPAR AMANDA: None availa ble. FINDIN GS: LOWER THORAX : There is eviden ce of focal airspa ce opacit y noted in the subple ural right lower lobe, may repres ent minor atelec tasis. Subseg mental consol idatio n is suspec kendal. Otherw ise the visual ized lung bases are clear. HEPATO BILIAR Y: Diffus e fatty infilt ration of the liver, withou t any focal lesion s. Gallbl adder is unrema rkable . No intrah epatic or extrah epatic ductal dilati on. PANCRE : No focal masses or ductal dilata tion. SPLEEN : No spleno megaly . Multip le spleni c calcif icatio ns are noted, likely sequel a of prior granul omatou s diseas e. ADRENA LS: No adrena l nodule s. KIDNEY S/URET ERS/BL ADDER: No hydron ephros is, stones , or solid mass lesion s. Focal hypode nse lesion is noted in the inferi or pole of the right kidney measur ing 5.3 cm, demons trates no abnorm al enhanc ement, likely repres ents a cyst. Tiny focal hypode nsity noted in the right kidney , likely cyst. Diffus e bladde r wall thicke justin is noted withou t eviden ce of focal lesion s. REPROD UCTIVE : No signif icant findin gs. PERITO NEUM / RETROP ERITON EUM: No free air or fluid. LYMPH NODES: No lympha denopa thy. VESSEL S: The abdomi nal aorta is normal in calibe r. Scatte red athero sclero tic calcif icatio ns are presen t. GI TRACT: No disten tion, wall thicke justin, or inflam matory strand ing. Small hiatus hernia is noted. Few scatte red coloni c divert iculi are noted withou t eviden ce of divert iculit is. Append ix is normal . ABDOMI NAL WALL: Intact . SOFT TISSUE S: Unrema rkable . BONES: Multil evel minor degene rative change s of the visual ized lumbar spine. IMPRES GERDA: Diffus e bladde r wall thicke justin is noted. No focal nodula rity. Cystit is is suspec kendal. No focal abnorm alitie s noted. Close follow -up is recomm ended. Subseg mental atelec tasis versus consol idatio n in the right lower lobe. Legall y authen ticate d by ALYX MARTINEZ 11-12 08:06: 38 Small hiatus hernia . Diffus e hepati c steato sis. Electr onical ly signed by: Jie Wisdom MD 2024 08:49 AM EDT RP Workst ation: [id number] Dictat ed By: Jie Wisdom Transc ribed By: Transc ribed On: 11/13/19 8:06 AM Electr onical ly signed by: Jie Wisdom 11/13/19 Thank you for referr MARY Mendez to [facility] al. Legall y authen ticate d by WISDOM JIE 11-12 08:06: 38 CC'ed Logic: Orderi ng Provid er: CARLOS HARMON Attend ing Provid er: CARLOS HARMON Referr ing Provid er: CARLOS HARMON Admitt ing Provid er: CARLOS HARMON [email or web address] [facility] [address], [place], [address], 11/12/2024 09:28:38 Result Notes None recorded. Problems Name Problem SNOMED Code Status Onset Date Resolution Date Notes Provider Name and Address Organization Details Recorded Time Jose Daniel hematuria 476212650 Active 2024 EDEN GONZALEZ MD [address], [place], [address] , [place] - [facility] [place] 13:46:52 Nocturia 671997002 Active 2024 EDEN GONZALEZ MD [address], [place], [address] , [place] - [facility] [place] 13:46:55 Urinary frequency due to benign prostatic hypertroph y 0281796094210 02 Active 2024 EDEN GONZALEZ MD [address], [place], [address] , [place] - [facility] [place] 14:58:14 Problem Notes None recorded. Procedures Surgical History Date Name Laterality Status Provider Name and Address Organization Details Recorded Time 11/25/19 Cystoscopy-Male completed EDEN GONZALEZ MD [address], [place], [address], [place] - [facility] [place] [facility] [place] 11/24/2024 14:58:02 removal of urinary calculus completed Jamia BIRCH - [facility] [place] 11/03/2024 13:37:17 operative procedure on foot completed Jamia BIRCH - [facility] [place] 11/03/2024 13:37:28 circumcision completed Jamia BIRCH - [facility] [place] 11/03/2024 13:37:40 Imaging Results None recorded. Procedure Notes None recorded. Medical Equipment None Reported. Allergies Allergen ID Allergen Name Allergen Category Reaction Reaction Severity Criticality Documentation Date Start Date Code Code System Note Provider Name and Address Organization Details Recorded Time 270509 Product containin g penicilli n (product) medicatio n Not available Not available Not available 11/03/2024 77215 8001 SNOMED Jamia Meraz null, [place] - [facility] & [place] 13:36:00 Medications Name Sig Start Date Stop Date Status Note LastModified by Organization Details LastModified Time celecoxib 200 mg capsule TAKE 1 CAPSULE BY MOUTH EVERY DAY active Not Available Not Available No t Available azithromycin 250 mg tablet TAKE 2 TABLETS BY MOUTH TODAY, THEN TAKE 1 TABLET DAILY FOR 4 DAYS DIRECTED active Not Available Not Available No t Available metoprolol succinate ER 50 mg tablet,extende d release 24 hr TAKE 1 TABLET BY MOUTH DAILY active Not Available Not Available No t Available metoprolol succinate ER 100 mg tablet,extende d release 24 hr TAKE ONE TABLET BY MOUTH ONCE DAILY active Not Available Not Available No t Available venlafaxine ER 150 mg capsule,extend ed release 24 hr TAKE 1 CAPSULE BY MOUTH EVERY DAY active Not Available Not Available No t Available glimepiride 2 mg tablet TAKE 1 TABLET BY MOUTH TWICE A DAY active Not Available Not Available No t Available tamsulosin 0.4 mg capsule TAKE 1 CAPSULE BY MOUTH EVERY DAY IN THE EVENING FOR 30 DAYS active Not Available Not Available No t Available [employer] Ultra Test strips USE TO CHECK BLOOD GLUCOSE EVERY DAY active Not Available Not Available No t Available acyclovir 5 % topical ointment APPLY A SMALL AMOUNT TO AFFECTED AREA EVERY 3 HOURS active Not Available Not Available No t Available oseltamivir 75 mg capsule TAKE 1 CAPSULE BY MOUTH TWICE A DAY FOR 5 DAYS active Not Available Not Available No t Available nitroglycerin 0.[address] UNDER THE TONGUE NEEDED FOR CHEST PAIN. MAY REPEAT IN 5 MIN FOR UP TO 2 TIMES active Not Available Not Available No t Available montelukast 10 mg tablet TAKE 1 TABLET BY MOUTH EVERY DAY FOR 30 DAYS active Not Available Not Available No t Available allopurinol 300 mg tablet TAKE 1 TABLET BY MOUTH EVERY DAY active Not Available Not Available No t Available methylpredniso lone 4 mg tablets in a dose pack TAKE 6 TABLETS ON DAY 1 DIRECTED ON PACKAGE AND DECREASE BY 1 TAB EACH DAY FOR A TOTAL OF 6 DAYS active Not Available Not Available No t Available albuterol sulfate HFA 90 mcg/actuation aerosol inhaler INHALE 2 PUFFS 4 TIMES DAILY AND EVERY 2 HOURS NEEDED active Not Available Not Available No t Available metformin ER 500 mg tablet,extende d release 24 hr TAKE 2 TABLETS BY MOUTH TWICE A DAY FOR 20 DAYS PATIENT PAST DUE FOR CHECK UP active Not Available Not Available No t Available ramipril 10 mg capsule TAKE 1 CAPSULE BY MOUTH EVERY DAY active Not Available Not Available No t Available rosuvastatin 20 mg tablet TAKE 1 TABLET BY MOUTH EVERY DAY active Not Available Not Available No t Available rosuvastatin 40 mg tablet TAKE 1 TABLET BY MOUTH EVERY DAY active Not Available Not Available No t Available fenofibrate nanocrystalliz ed 145 mg tablet TAKE 1 TABLET BY MOUTH EVERY DAY active Not Available Not Available No t Available Xarelto 20 mg tablet TAKE 1 TABLET BY MOUTH EVERY DAY WITH SUPPER active Not Available Not Available No t Available Farxiga 10 mg tablet TAKE 1 TABLET BY MOUTH EVERY DAY active Not Available Not Available No t Available OneTouch Ultra2 Meter USE TO CHECK BLOOD GLUCOSE EVERY DAY active Not Available Not Available No t Available OneTouch Delica Plus Lancet 33 gauge USE TO CHECK BLOOD GLUCOSE EVERY DAY active Not Available Not Available No t Available Vitals Date Recorded Body height Body mass index (BMI) Body weight Oxygen saturation Oxygen saturation in Arterial blood by Pulse oximetry Heart rate Systolic blood pressure Diastolic blood pressure Provider Name and Address Organization Details Last Updated DateTime 5 182.88 cm 31.1 kg/m2 407294. 65 g 98 % 98 % 71 /min 128 mm[Hg] 74 mm[Hg] Jamia Meraz [place] - [facility] [place] [facility] [place] 5 14:33:50 Social History None recorded. Functional Status None recorded. Mental Status None recorded. Family History Relationship Description Onset Age of this Age Resolved Age Notes LastModified by Organization Details LastModified Time Mother Myocardial infarction pt. added direct ly (11/02) [email or web address] Not available 11/02/2024 13:50:27 Brother Myocardial infarction pt. added direct ly (11/02) [email or web address] Not available 11/02/2024 13:50:27 Maternal Grandmother Myocardial infarction pt. added direct ly (11/02) [email or web address] Not available 11/02/2024 13:50:27 Maternal Grandfather Myocardial infarction pt. added direct ly (11/02) [email or web address] Not available 11/02/2024 13:50:27 Medical History No medical history recorded. Past Encounters Encounter ID Performer Location Encounter Start Date Encounter Closed Date Diagnosis/Indication Diagnosis SNOMED-CT Code Diagnosis ICD10 Code Diagnosis Note [id number] EDEN GONZALEZ MD [facility] Urology-1 00 [address] [facility] [address] [place] [address] 11/03/2024 13:06:22 11/03/2024 13:52:28 Jose Daniel hematuria 112134324 R31.0 Nocturia 566968517 R35.1 [id number] EDEN GONZALEZ MD [facility] Urology-[facility] 00 [address] [facility] [address] [place] [address] 11/24/2024 14:18:05 11/24/2024 15:04:16 Jose Daniel hematuria [id number] R31.0 Urinary fr equency due to benign prostatic hypertrophy [id number] 97079 N40.1 R35.0 Health Concerns Section Related Observation LastModified by Organization Detai ls LastModified Time None Recorded Concern Status LastModified by Organization Details LastModified Time None Recorded Payers Encounter Date Sequence Insurance Name Policy Number Policy Montaño Covered Member ID Montaño Member ID Guarantor Name 11/24/2024 1 [place] [id number] Mary Owusu [id number] Mary Owusu Notes Date Note Type Note Provider Name and Address Organization Details Recorded Time 11/24/2024 text/html 11/24/24 [id number] returns to my office for cystoscopy. Mary Owusu is a 59-year-old male who presents for a cystoscopy procedure. There is a cyst on the right kidney measuring approximately five centimeters, which is likely the source of the blood in the urine. The cyst is common and not cancerous. The bladder wall is thickened, which is not surprising for a man of his age due to the prostate growing and the bladder muscle working harder to push urine. Blood work shows a PSA level of 0.4, which is normal and not concerning. The cystoscopy is being performed to examine the lining of the bladder wall, as a CT scan may miss flat lesions. -- 11/03/24 [id number]-male referred to my office for gross hematuria. Mary Owusu is a 59-year-old male who presents for a new patient visit. He has experienced blood in his urine approximately four times over the last six weeks, with the first occurrence about two weeks ago. The blood appears pink and bright red, without clots or associated pain. The episodes typically occur when he gets up in the middle of the night to urinate. He has a history of kidney stones, with the last occurrence being 15-16 years ago, and one stone required removal. He reports no burning sensation during urination and maintains a good stream. He wakes up approximately six times per night to urinate, which he attributes to his type 2 diabetes. He takes Metformin for diabetes management. He denies smoking and has no family history of prostate, bladder, or kidney cancer. He is currently on Xarelto for atrial fibrillation and follows up with Dr. Barth for his cardiac care. 11/12/24 CT abd/pel w/w/o ([facility]): KIDNEYS/URETERS/SAIDA DDER: No hydronephrosis, stones, or solid mass lesions. Focal hypodense lesion is noted in the inferior pole of the right kidney measuring 5.3 cm, demonstrates no abnormal enhancement, likely represents a cyst. Tiny focal hypodensity noted in the right kidney, likely cyst. Diffuse bladder wall thickening is noted without evidence of focal lesions.11/03/24 PSA 0.404 UA: blood-neg05/26/24 Hgb 15.3, Hct 45.9 EDEN GONZALEZ MD [address] , [place], [address], [facility] - [place] [facility] [place] 11/26/2024 07:49:22
--- OUTSIDE RECORDS SUMMARY | 2025-01-07 08:47 | XMS_ITS | Data Portability ---
Author Organization [place] - [facility] - [place] & GISELE Stein ADMIN Address [address] [place] [id number] Care Team Providers Care Job Compositor Name Role Phone [facility] Primary Care Provider Assessment Encounter Date Assessment Date Assessment LastModified by Organization Details LastModified Time 11/03/2024 11/03/2024 ASSESSMENT: Mary Owusu is a 59-year-old male with gross hematuria, history of kidney stones, type 2 diabetes, and atrial fibrillation on Xarelto. PLAN: 1. Ordered a CT urogram to evaluate the kidneys for stones or masses. 2. Scheduled a cystoscopy to examine the bladder for any abnormalities. 3. Performed a digital rectal exam to assess the prostate, which was symmetric and slightly enlarged. 4. Ordered a PSA blood test to rule out prostate issues. 5. Advised the patient to complete the PSA test before the cystoscopy to avoid false elevation of results. 6. Instructed the patient to follow up after the CT urogram and cystoscopy for further evaluation. [email or web address] Not available 11/03/2024 13:47:42 11/24/2024 11/24/2024 ASSESSMENT: Mary Owusu is a [...] created using voice recognition/text compilation software with [employer] documentation services during the encounter with the patient; Please excuse any errors due to the it instructor process. [email or web address] Not available 11/24/2024 14:58:57 Plan of Treatment Reminders Order Date Submit Date Provider Last Modified By Organization Details Last Modified Time Details Appointments OV EST 15 2024 02:30P Prashant GONZALEZ MD Not available Not available Not available Lab urinalysi s, dipstick [address] [facility], [address], [place], [address], 11/24/2024 14:58:35 urinalysi s, dipstick [address] [facility], [address], [place], [address], 11/03/2024 14:34:46 PSA, serum or plasma 2024 025 [facility] (Registration ), [address], [place], [address], 11/03/2024 17:05:09 Referral None recorded. Procedures bladder scan (PROC) [address] [facility], [address], [place], [address], 11/03/2024 14:34:46 Surgeries None recorded. Imaging CT, urogram 2024 025 [email or web address] [facility] (Centralized Scheduling), [address] [place], [address], 11/17/2024 10:36:42 Medication Orders tamsulosi n 0.4 mg capsule 2024 025 [facility] #[id number], [address] [place], [address], 11/24/2024 14:58:44 Patient TargetsNo targets recorded. Patient InstructionsNo instructions recorded. Reason for Referral None Reported. Results Created Date Observation Date Name Description Value Unit Range Abnormal Flag Note LastModifiedBy Organization Detail LastModifiedTime 11/04/1911/03/2024 PROST ATE SPECI FIC AG (PSA) prostate specific Ag (PSA) 0.4 NG/mL 0-4.0 Not Available [facility] ([facility]) [address] [facility], [place], [address], 11/03/2024 17:05:09 11/04/19 25 11/03/2024 bladd er scan (PROC ) Calculated Residual Urine: 217 Not Available [place] [address] [address] [facility] [address], [place], [address], 11/03/2024 13:36:51 11/04/19 25 11/03/2024 urina lysis , dipst ick Leukocytes (reference range) negati ve Not Available [place] [address] [address] [facility] [address], [place], [address], 11/03/2024 13:36:11 11/04/19 25 11/03/2024 urina lysis , dipst ick Nitrite (reference range:) negati ve Not Available [place] [address] [address] [facility] [address], [place], [address], 11/03/2024 13:36:11 11/04/19 25 11/03/2024 urina lysis , dipst ick Protein (reference range) trace Not Available [place] [address] [address] [facility] [address], [place], [address], 11/03/2024 13:36:11 11/04/19 25 11/03/2024 urina lysis , dipst ick pH (reference range 5-8.5) 5.0 Not Available [facility] [place] [address] [address] [facility] [address], [place], [address], 11/03/2024 13:36:11 11/04/19 25 11/03/2024 urina lysis , dipst ick Blood (reference range:) small Not Available [place] [address] [facility] [address], [place], [address], 11/03/2024 13:36:11 11/04/19 25 11/03/2024 urina lysis , dipst ick Specific Aulander (reference range) 1.000 Not Available [place] [address] [facility] [address], [place], [address], 11/03/2024 13:36:11 11/04/19 25 11/03/2024 urina lysis , dipst ick Ketone (reference range) negati ve Not Available [place] [address] [facility] [address], [place], [address], 11/03/2024 13:36:11 11/04/19 25 11/03/2024 urina lysis , dipst ick Bilirubin (reference range) negati ve Not Available [place] [address] [facility] [address], [place], [address], 11/03/2024 13:36:11 11/04/19 25 11/03/2024 urina lysis , dipst ick Glucose (reference range) 2000+ Not Available [place] [address] [facility] [address], [place], [address], 11/03/2024 13:36:11 11/04/19 25 11/03/2024 urina lysis , dipst ick Color (reference range: yellow-brown ) Yellow Not Available [place] [address] [facility] [address], [place], [address], 11/03/2024 13:36:11 11/25/19 25 11/24/2024 urina lysis , dipst ick Leukocytes (reference range) negati ve Not Available [facility] [address] [facility] [address], [place], [address], 11/24/2024 14:32:11 11/25/19 25 11/24/2024 urina lysis , dipst ick Nitrite (reference range:) negati ve Not Available [place] [address] [facility] [address], [place], [address], 11/24/2024 14:32:11 11/25/19 25 11/24/2024 urina lysis , dipst ick Urobilinogen (reference range) 0.2 Not Available [facility] [address] [facility] [address], [place], [address], 11/24/2024 14:32:11 11/25/19 25 11/24/2024 urina lysis , dipst ick Protein (reference range) negati ve Not Available [place] [address] [facility] [address], [place], [address], 11/24/2024 14:32:11 11/25/19 25 11/24/2024 urina lysis , dipst ick pH (reference range 5-8.5) 6.0 Not Available [place] [address] [facility] [address], [place], [address], 11/24/2024 14:32:11 11/25/19 25 11/24/2024 urina lysis , dipst ick Blood (reference range:) non-He molyze d: Trace Not Available [place] [address] [facility] [address], [place], [address], 11/24/2024 14:32:11 11/25/19 25 11/24/2024 urina lysis , dipst ick Specific Aulander (reference range) 1.010 Not Available [place] [address] [facility] [address], [place], [address], 11/24/2024 14:32:11 11/25/19 25 11/24/2024 urina lysis , dipst ick Ketone (reference range) negati ve Not Available [place] [address] [facility] [address], [place], [address], 11/24/2024 14:32:11 11/25/19 25 11/24/2024 urina lysis , dipst ick Bilirubin (reference range) modera te Not Available [place] [address] [facility] [address], [place], [address], 11/24/2024 14:32:11 11/25/19 25 11/24/2024 urina lysis , dipst ick Glucose (reference range) 2000+ Not Available [place] [address] [facility] [address], [place], [address], 11/24/2024 14:32:11 11/25/19 25 11/24/2024 urina lysis , dipst ick Color (reference range: yellow-brown ) Yellow Not Available [place] [address] [facility] [address], [place], [address], 11/24/2024 14:32:11 11/13/19 25 11/12/2024 CT ABD pel w/w/O [facility] [address] [place] [id number] Phone: Fax: Name: MARY OWUSU Exam Date: 11/13/19 25 : 965 Age 59 years Gender : M Access ion: [id number] [phone] Physic katie: EDEN GONZALEZ Facili ty: [place] Facili ty HSV: Outpat ient Exam: CT ABD PEL W/W/O EXAM DESCRI PTION: CT ABDOME N PELVIS WITHOU T THEN WITH IV CONTRA ST perfor med on 11/13/19 25 7:06 AM CDT. INDICA TION: gross hematu [...] sis. Electr onical ly signed by: Jie Andrade MD 2024 08:49 AM EDT RP Workst ation: [id number] Dictat ed By: Jie Andrade Transc ribed By: Transc ribed On: 11/13/19 8:06 AM Electr onical ly signed by: Jie Andrade 11/13/19 [facility] Legall y authen ticate d by ALYX MARTINEZ 11-12 08:06: 38 CC'ed Logic: Orderi ng Provid er: CARLOS HARMON Attend ing Provid er: CARLOS HARMON Referr ing Provid er: CARLOS Ricardo ing Provid er: CARLOS HARMON [email or web address] [facility] - Physical Therapy [address] [facility], [place], [address], 11/12/2024 09:28:38 Result Notes None recorded. Problems Name Problem SNOMED Code Status Onset Date Resolution Date Notes Provider Name and Address Organization Details Recorded Time Jose Daniel hematuria 207856432 Active 2024 EDEN GONZALEZ MD [address], [facility] [address] , [place] - [facility] & [place] 13:46:52 Nocturia 276159654 Active [address], [address] [facility] & [place] 13:46:55 Urinary frequency due to benign prostatic hypertroph y 6197186624300 02 Active [address], [address] - [facility] & [place] 14:58:14 Problem Notes None recorded. Procedures Surgical History Date Name Laterality Status Provider Name and Address Organization Details Recorded Time 11/25/19 25 Cystoscopy-Male completed MD [address], [address] [place] [address] - [facility] & [place] 11/24/2024 14:58:02 removal of urinary calculus completed Jamia Mckeonarrez EYAL [facility] & [place] 11/03/2024 13:37:17 operative procedure on foot completed Jamia Pikeez EYAL - [facility] & [place] 11/03/2024 13:37:28 circumcision completed Jamia Pikeez EYAL [facility] & [place] 11/03/2024 13:37:40 Imaging Results None recorded. Procedure Notes None recorded. Medical Equipment None Reported. Allergies Allergen ID Allergen Name Allergen Category Reaction Reaction Severity Criticality Documentation Date Start Date Code Code System Note Provider Name and Address Organization Details Recorded Time 522784 Product containin g penicilli n (product) medicatio n Not available Not available Not available 11/03/2024 93925 8001 SNOMED Jamia Meraz [facility], [place] - [facility] & [place] 13:36:00 Medications Name Sig Start Date Stop [...] Not Available Not Available No t Available UbisenseTouch Ultra Test strips USE TO CHECK BLOOD [...] Updated DateTime 5 182.88 cm 31.1 kg/m2 590152. 65 g 95 % 95 % 77 /min 156 mm[Hg] 76 mm[Hg] [facility] [place] [facility] & [place] 13:35:47 Date Recorded Body height Body mass index (BMI) Body weight Oxygen saturation Oxygen saturation in Arterial blood by Pulse oximetry Heart rate Systolic blood pressure Diastolic blood pressure Provider Name and Address Organization Details Last Updated DateTime 5 182.88 cm 31.1 kg/m2 719788. 65 g 98 % 98 % 71 /min 128 mm[Hg] 74 mm[Hg] [facility] & [place] 5 14:33:50 Social History None recorded. Functional [...] SNOMED-CT Code Diagnosis ICD10 Code Diagnosis Note [id number] EDEN GONZALEZ MD [facility] 00 [address] [facility] [address] [place] [address] 11/03/2024 13:06:22 11/03/2024 13:52:28 Jose Daniel hematuria 064829151 R31.0 Nocturia 569510859 R35.1 [id number] EDEN GONZALEZ MD [facility] 00 [address] [facility] [address] [place] [address] 11/24/2024 14:18:05 11/24/2024 15:04:16 Jose Daniel hematuria 920532953 R31.0 Urinary fr equency due to benign prostatic hypertrophy 2208518383 30142 N40.1 R35.0 Health Concerns Section Related Observation LastModified by Organization Detai ls LastModified Time None Recorded Concern Status LastModified by Organization Details LastModified Time None Recorded Advance Directives Directive None Recorded Payers Insurance Date Sequence Insurance Name Policy Number Policy Montaño Covered Member ID Montaño Member ID Guarantor Name 11/21/2024 1 SARAHI-[place]: SERGIO MCCLAIN [place] [id number] Mary Owusu [id number] Mary Owusu Notes Date Note Type Note Provider Name and Address Organization Details Recorded Time 11/03/2024 text/html 11/03/24 18-nllr-oxb-male referred to my office for gross hematuria. [...] with Dr. Barth for his cardiac care. 10/14/24 UA: blood-neg05/26/24 Hgb 15.3, Hct 45.9 EDEN GONZALEZ MD [address], [place], [address], [place] - [facility] - [place] & [place] 11/03/2024 14:35:02 11/24/2024 text/html 11/24/24 30-dycn-urp-male returns to my office for cystoscopy. Mary [...] scan may miss flat lesions. -- 11/03/24 74-ifet-rve-male referred to my office for gross hematuria. [...] his cardiac care. 11/12/24 CT abd/pel w/w/o ([facility]): KIDNEYS/URETERS/SAIDA DDER: No hydronephrosis, stones, or solid [...] Hgb 15.3, Hct 45.9 EDEN GONZALEZ MD [address], [place], [address], [facility] - [facility] - [place] & [place] 11/26/2024 07:49:22
[2025-01-07 09:16] LABS: Basophils # 0.1 K/mm3 (0-0.2); Basophils % 1.7 % (0.1-2.0); Eosinophils # 0.3 Kmm3 (0.0-0.4); Eosinophils % 6.1 % (0.1-12.0); Hematocrit 42.1 % (42.0-52.0); Hemoglobin 14.3 g/dL (14.1-18.0); Immature Granulocytes # 0.02 10^3uL; Immature Granulocytes % 0.5 %; Lymphocytes # 1.1 K/mm3 (0.7-4.5); Mean Corpuscular Hemoglobin 31.2 pg (27.0-31.2); Mean Corpuscular Volume 91.7 fl (80-94); Mean Platelet Volume 10.1 fl (7.4-10.4); Monocytes # 0.3 K/mm3 (0.1-1.0); Neutrophils # 2.5 K/mm3 (1.8-7.8); Neutrophils % 58.7 % (37.0-80.0); Nucleated Red Blood Cells # 0 10^3/uL; Nucleated Red Blood Cells % 0 %; Platelet Count 165 K/mm3 (142-424); Red Blood Count 4.59 M/mm3 (4.60-6.20); Red Cell Distribution Width 13.1 % (11.5-17.5); Red Cell Distribution Width-SD 43.4 fL; White Blood Count 4.2 K/mm3 (4.8-10.8)
[2025-01-07 09:30] LABS: Hemoglobin A1C 10.3 % (4.0-6.0)
[2025-01-07 09:54] LABS: Alanine Aminotransferase 36 U/L (12-78); Albumin Level 4.7 g/dl (3.5-5.0); Albumin/Globulin Ratio 1.7 (1.1-1.8); Alkaline Phosphatase 69 U/L (38-126); Anion Gap 16.2 mEq/L (5-15); Aspartate Amino Transferase 41 U/L (17-59); Bilirubin,Total 0.8 mg/dl (0.2-1.3); Blood Urea Nitrogen 22 mg/dl (9-20); Calcium 10.3 mg/dl (8.4-10.2); Carbon Dioxide 26 mmol/L (22.0-30.0); Chloride 102 mmol/L (98-107); Chol/HDL Ratio 3.9 (1-3.5); Cholesterol 165 mg/dl (140-200); Estimated Glomerular Filt Rate 99 ml/min (>60); GFR (African American) 120 ML/MIN (>60); Globulin 2.8 g/dL (1.3-3.2); Glucose 191 mg/dl (74-100); HDL Cholesterol 42 mg/dl (40-60); Potassium 5.2 mmoL/L (3.5-5.1); Sodium 139 mmol/L (136-145); Total Protein,Serum 7.5 g/dl (6.3-8.2)
[2025-01-07 09:57] LABS: Triglycerides 422 mg/dl (30-150)
[2025-01-07 10:05] LABS: Direct LDL Cholesterol 56.36 mg/dL (100-129)
[2025-01-07 10:19] LABS: Creatinine,Urine Random 49 mg/dL (Not Estab.); Microalbumin < 6.000 mg/L (0-16.7)
[2025-01-07 10:24] LABS: Prostate Specific Ag Screen 0.3 ng/ml (0.0-4.0)
== END 2025-01-07 23:59 | disposition home or self-care (01) ==
LOC: LAB 08:33
PROVIDERS: PCP Family Medicine; Visit Provider Family Medicine
DX: E78.5 Hyperlipidemia, unspecified (principal); E11.9 Type 2 diabetes mellitus without complications; I10 Essential (primary) hypertension; Z12.5 Encounter for screening for malignant neoplasm of prostate
CPT/HCPCS: 36415; 80053; 80061; 82043; 82570; 83036; 85025; G0103

== ENCOUNTER 2025-06-14 09:57 | Outpatient (CLI) | payer BC, SELFPAY ==
--- OUTSIDE RECORDS SUMMARY | 2024-05-26 05:30 | XMS_ITS ---
Author Organization [facility] Address [address] [facility] [address] [place] [id number] Care Team Providers Care Bar Back Name Role Phone Simone Gonzales Primary Care Provider [phone] Radha Posadas Unavailable [phone] Allergies Allergen (clinical drug ingredient) Drug/Non Drug Allergy documented on EMR Reaction Allergy Type Onset Date Status Penicillin hives Drug Allergy Active Results Component Value Reference Range Notes Glucose (In-House) Reviewed date:05/26/2024 11:27:21 AM Interpretation:258 Performing Lab: Notes/Report: 258 blood glucose 258 74 - 106 mg/dL CBC Venipuncture (in house) Reviewed date:05/26/2024 11:27:35 AM Interpretation: Performing Lab: Notes/Report: wbc 7.5 3.5 - 10 lymph 14.6 15 - 50 mid 3.6 2 - 15 gran 81.8 35 - 80 rbc 5.06 3.5 - 5.5 hgb 15.3 11.5 - 16.5 hct 45.9 35 - 55 mcv 90.7 75 - 100 mch 30.3 25 - 35 mchc 33.4 31 - 38 platlet 260 100 - 400 Glycohemoglobin A1c (in hous e) Reviewed date:05/26/2024 11:27:04 AM Interpretation:8.4% Performing Lab: Notes/Report: 8.4% glycohemoglobin 8.4% 5 - 6.5 % P-Comprehensive Metabolic Pa trinity (CMP) Reviewed date:06/02/2024 09:28:09 AM Interpretation:gluc 242, bun 21 Performing Lab: Notes/Report: CLIA: [id number] Scotty Farrell MD, Resource Conservation Manager [facility] , [place] [address] Test performed by [employer] Sodium 136 135-145 mmol/L Potassium 4.9 3.5-5.3 mmol/L Chloride 99 97-108 mmol/L CO2 22 22-32 mmol/L Glucose 242 65-99 mg/dL BUN 21 6-20 mg/dL Creatinine 0.89 0.70-1.30 mg/dL Calcium 9.6 8.6-10.4 mg/dL eGFR by Creatinine 99 >59 mL/min/1.73m2 Protein 7.5 6.0-8.3 g/dL Albumin 4.3 3.5-5.3 g/dL Alkaline Phosphatase 101 40-129 IU/L ALT (SGPT) 30 <5-55 IU/L AST (SGOT) 32 <5-46 IU/L Bilirubin, Total 0.4 <0.2-1.2 mg/dL A/G Ratio 1.3 1.1-2.5 P-CPK and CKMB Reviewed date:06/02/2024 09:28:30 AM Interpretation:Normal Performing Lab: Notes/Report: Test performed by [employer] [address] [place] [address] , [place] [address] Scotty Farrell MD, Resource Conservation Manager CLIA: [id number] Creatine Kinase 74 20-200 U/L CK MB Fraction 2.3 <7.7 ng/mL P-Troponin I Reviewed date:04/19/2025 04:08:04 PM Interpretation: Performing Lab: Notes/Report: [id number] Reviewed date:06/02/2024 09:27:45 AM Interpretation:Normal Performing Lab: Notes/Report: Test performed by [employer] [address] [place] [address] , [place] [address] Scotty Farrell MD, Resource Conservation Manager CLIA: [id number] Troponin-T 14 <6-18 ng/L Patients who are prescribed biotin may exhibit elevated troponin results. Please interpret results accordingly. P-TSH Reviewed date:06/02/2024 09:28:50 AM Interpretation:3.26 Performing Lab: Notes/Report: Test performed by [employer] [address] [place] [address] [place] [address] Scotty Farrell MD, Resource Conservation Manager CLIA: [id number] TSH 3.26 0.43-5.25 mU/L P-Uric Acid Reviewed date:06/02/2024 09:27:03 AM Interpretation:3.1 Performing Lab: Notes/Report: Test performed by [employer] [address] [place] [address] , [address], [place] [address] Scotty Farrell MD, Resource Conservation Manager CLIA: [id number] Uric Acid 3.1 3.4-8.0 mg/dL Reason For Referral Diagnosis 1 Irregular cardiac rh [facility] (I49.9) [facility] Referring Provider First Name Radha Referring Provider Last Name Cuauhtemoc Referring Provider Speciality Family Pra ctice Referred Provider Cardiology, . Referred Provider Specialty Cardiovascul ar Disease General Notes Radha Posadas 11:21:52 AM > CP; irregular HB;++ Family HX, Eusebia He 05/26/2024 11:43:35 AM > 05/26/2024 at 01:15pm Referral Priority Routine REASON FOR VISIT light headed Medications Medication SIG (Take, Route, Frequency, Duration) Notes Start Date End Date Status Allopurinol 300 MG TAKE 1 TABLET BY MOUTH EVERY DAY Active TrackingPoint Ultra 2 w/Device USE TO CHECK BLOOD GLUCOSE EVERY DAY; Duration: 30 Active Nitroglycerin 0.4 MG 1 Sublingual prn chest pain; may repeat in 5 min x 2 05/26/2024 Active Celecoxib 200 MG TAKE 1 CAPSULE BY MOUTH ONCE DAILY WITH FOOD; Duration: 90 Active Montelukast Sodium 10 MG TAKE 1 TABLET BY MOUTH EVERY DAY FOR 30 DAYS; Duration: 90 Active Venlafaxine HCl ER 150 MG TAKE 1 CAPSULE BY MOUTH EVERY DAY; Duration: 90 Active CeleBREX 200 MG TAKE 1 CAPSULE BY MOUTH ONCE DAILY WITH FOOD Active Dicyclomine HCl 20 MG 1 tablet Orally Three times a day, prn Active TrueTrack Test - 1 strip test 2 times a day or as directed 10/26/2015 Active Accu-Chek Marley Plus 1 STRIP ONCE DAILY *Please review and pick correct strength-formulatio n from Medispan options. If intended option is not shown, discontinue and re-order from Quick Search* 02/08/2022 Active Rosuvastatin Calcium 20 MG TAKE 1 TABLET BY MOUTH EVERY DAY Active Ramipril 10 MG TAKE 1 CAPSULE BY MOUTH EVERY DAY Active Farxiga 10 MG 1 tablet Orally Once a day Active Fenofibrate 145 MG TAKE 1 TABLET BY MOUTH EVERY DAY Active metFORMIN HCl ER 500 MG TAKE 2 TABLETS BY MOUTH TWICE DAILY Active Glimepiride 2 MG 1 tab(s) Orally Two times a day Active Problems Problem Type SNOMED Code ICD Code Onset Dates Problem Status W/U Status Risk Notes Problem Cardiac arrhythmia (713229854) Irregular cardiac rhythm (I49.9) Active confirmed Problem Polyarthritis (553412994) Polyarthritis (M13.0) Active confirmed Problem Ethanol abuse (37551376) ETOH abuse (F10.10) Active confirmed Problem Tobacco use (988243270) Tobacco use disorder (F17.200) Active confirmed Problem Pure hypercholesterolemia (045615452) Pure hypercholesterolemia (E78.0) Active confirmed Vital Signs Weight 217.0 lbs 05/26/2024 Blood pressure systolic 120 mm Hg 05/26/20 24 Blood pressure diastolic 64 mm Hg 024 Height 70 in 05/26/2024 BMI 31.13 kg/m2 05/26/2024 Encounters Encounter Location Date Provider Diagnosis [facility] [address] [facility] [address] [place], [place] [id number] 05/26/2024 Radhacydney Posadas Headache, unspecified R51.9 ; Irregular cardiac rhythm I49.9 ; Polyarthritis M13.0 ; ETOH abuse F10.10 ; Tobacco use disorder F17.200 ; Chest pain R07.9 ; Type 2 diabetes mellitus without complication E11.9 ; Essential hypertension I10 ; Hyperuricemia E79.0 and Pure hypercholesterolemia E78.0 Assessments Encounter Date Diagnosis (ICD Code) Assessment Notes Treatment Notes Treatment Clinical Notes Section Notes 05/26/2024 Headache, unspecifie d (ICD-10 - R51.9) discussed causative factors 05/26/2024 Irregular cardiac rh ythm (ICD-10 - I49.9) discussed with DR. Gonzales 05/26/2024 Polyarthritis (ICD-1 0 - M13.0) 05/26/2024 ETOH abuse (ICD-10 - F10.10) discussed decreasing ETOH intake 05/26/2024 Tobacco use disorder (ICD-10 - F17.200) He chews tobacco; discussed tobacco cessation 05/26/2024 Chest pain (ICD-10 - R07.9) to see cardiology at 130 pm today 05/26/2024 Type 2 diabetes fer itus without complication (ICD-10 - E11.9) has been taking only 2 metformin in the AM and no PM dose; will try to remember to take HS dose; 05/26/2024 Essential hypertensi on (ICD-10 - I10) 05/26/2024 Hyperuricemia (ICD-1 0 - E79.0) 05/26/2024 Pure hypercholesterolemia (ICD-10 - E78.0) 05/26/2024 Other has cardiology appt at 130 pm today; will have EKG done at [facility]; discussed when to go to the ER Plan Of Treatment Medication Medication Name Sig Start Date Stop Date Notes Allopurinol 300 MG TAKE 1 TABLET BY MANUELA TH EVERY DAY Nitroglycerin 0.4 MG 1 Sublingual prn ch est pain; may repeat in 5 min x 2 05/26/2024 Rosuvastatin Calcium 20 MG TAKE 1 TABLET BY MOUTH EVERY DAY Ramipril 10 MG TAKE 1 CAPSULE BY MO UTH EVERY DAY Farxiga 10 MG 1 tablet Orally Once a day Fenofibrate 145 MG TAKE 1 TABLET BY MANUELA TH EVERY DAY metFORMIN HCl ER 500 MG TAKE 2 TABLETS B Y MOUTH TWICE DAILY Glimepiride 2 MG 1 tab(s) Orally Two times a day Treatment Notes Assessment Notes Headache, unspecified discussed causativ e factors Irregular cardiac rhythm discussed with DR. Gonzales ETOH abuse discussed decreasing ETOH intake Tobacco use disorder He chews tobacco; d iscussed tobacco cessation Chest pain to see cardiology at 130 pm today Type 2 diabetes mellitus wit hout complication has been taking only 2 metformin in the AM and no PM dose; will try to remember to take HS dose; Other has cardiology appt at 130 pm today; will have EKG done at [facility]; discussed when to go to the ER Pending Test Test Name Order Date EKG 05/26/2024 Referrals Referral Date Details 05/26/2024 05/26/2024, . Cardio logy Next Appt Details Follow Up: prn,will notify o f test results, Reason: Progress Notes * FLORECITA OWUSU:1965 (60 yo M)Acc No.[id number]:05/26/2024 Progress Notes Patient: MARY MORENO Provider: MAGDIEL Quezada :1965 A ge:59 Y S ex:Male Date:05/26/2024 Address:[address] [place] [address] [place] [id number] Pcp:Simone Gonzales Subjective: * Chief Complaints: * 1 . Light headed. * HPI: C ardiology: 59 year old male presents with c/o Chest Pain l eft chest hurts to rub. c/o Dizziness. c/o Fatigue P t is here today with c/o feeling light headed. Pt sts he has had a headache, chest pain, numbness and sts that everything in his body hurts and sts this has all been going on for 2 weeks. 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 c/o Headaches. H PI: pt did go hunting this past weekend; he drinks 12 beers daily. * ROS: D ERMATOLOGY: no R dayron. n o H erica. G ASTROENTEROLOGY: no N ausea. n o V omiting. M USCULOSKELETAL: Joint pain y es. N EUROLOGY: Headache y es. T ingling numbness y es, b ilateral hands. D izziness yes. G ait abnormality yes. O PTHALMOLOGY: Blurring of vision y es. U ROLOGY: no D ifficulty urinating. n o B lood in urine. * Medical History: S easonal Allergies, Heart Murmur, Hypertension, Hyperlipidemia, Hyperuricemia, Impaired Fasting Glucose, HDL Deficiency, Testosterone dDeficiency, Vitamin D Deficiency, Sleep Apnea, Hypersomnolence, Depression, Type 2 diabetes, 07/02/2014. * Family History: F ather: alive, heart disease. M other: alive, hypertension, heart disease, depession.?Maternal Grand Father: hypertension, heart disease. M aternal Grand Mother: hypertension, heart disease. M aternal uncle: hypertension, heart disease. 5 brother(s) . 1 son(s) , 1 daughter(s) - healthy. . * Social History: C URRENT TOBACCO USE S moking Status: Patient does NOT smoke. C affeine: yes, frequency:. Exercise: yes. Home smoke detector use: yes. Marital Status: . 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 Past smoking status: no, smokeless tobacco since age of 16 yrs.. Recreational drug use: no. Alcohol: Type: , Frequency: occasionally,Years: , Determination:. * Medications: T aking TrueTrack Test - Strip 1 strip test 2 times a day or as directed , Taking Accu-Chek Marley Plus 1 STRIP ONCE DAILY , Notes to Pharmacist: *Please review and pick correct strength-formulation from [employer] options. If intended option is not shown, discontinue and re-order from Quick Search*, Taking CeleBREX 200 MG Capsule TAKE 1 CAPSULE BY MOUTH ONCE DAILY WITH FOOD , Taking Dicyclomine HCl 20 MG Tablet 1 tablet Orally Three times a day, prn , Taking Allopurinol 300 MG Tablet TAKE 1 TABLET BY MOUTH EVERY DAY , Taking Glimepiride 2 MG Tablet 1 tab(s) Orally Two times a day , Taking metFORMIN HCl ER 500 MG Tablet Extended Release 24 Hour TAKE 2 TABLETS BY MOUTH TWICE DAILY , Taking Farxiga 10 MG Tablet 1 tablet Orally Once a day , Taking Venlafaxine HCl ER 150 MG Capsule Extended Release 24 Hour TAKE 1 CAPSULE BY MOUTH EVERY DAY , Taking Rosuvastatin Calcium 20 MG Tablet TAKE 1 TABLET BY MOUTH EVERY DAY , Taking OneTouch Ultra 2 w/Device Kit USE TO CHECK BLOOD GLUCOSE EVERY DAY , Taking Montelukast Sodium 10 MG Tablet TAKE 1 TABLET BY MOUTH EVERY DAY FOR 30 DAYS , Taking Fenofibrate 145 MG Tablet TAKE 1 TABLET BY MOUTH EVERY DAY , Taking Ramipril 10 MG Capsule TAKE 1 CAPSULE BY MOUTH EVERY DAY , Taking Celecoxib 200 MG Capsule TAKE 1 CAPSULE BY MOUTH ONCE DAILY WITH FOOD , Medication List reviewed and reconciled with the patient * Allergies: P enicillin: hives. Objective: * Vitals: W t:217.0, Temp:97.7, BP:120/64, Nurse:NELLIE, Ht: 70, BMI:31.13. * Examination: G eneral Examination: General Appearance: NAD appears healthy alert pleasant.?HEENT: sclera and conjunctiva clear, PERRLA,. O ral cavity: mucosa moist and WNL no erythema. N christiano: supple no lymphadenopathy no carotid bruits thyroid normal. C hest: left chest wall sore with palpation. H eart: irregular rhythm. L ungs: CTAB A&P. A bdomen: bowel sounds present soft and nontender. N eurologic Exam:? alert and oriented normal cranial nerves II-XII sensory & motor WNL. E xtremities: 1 + leg edema bilaterally. Assessment: * Assessment: 1. H eadache, unspecified - R51.9 (Primary) 2 . I rregular cardiac rhythm - I49.9 3 . P olyarthritis - M13.0 4 . E EDEN abuse - F10.10? 5. T obacco use disorder - F17.200 6 . C hest pain - R07.9 7. T ype 2 diabetes mellitus without complication - E11.9 8 .?Essential hypertension - I10 9 . H yperuricemia - E79.0 1 0.?Pure hypercholesterolemia - E78.0 Plan: * Treatment: 2. I rregular cardiac rhythm L AB: P-TSH (Collection Date & Time - 05/26/2024 10:00 AM) 3 .26 Value Reference Range T SH 3.26 0.43-5.25 - mU/L * Radha Posadas 06/02/2024 9:28:37 AM > I spoke with pt and reported results ?LAB: CBC Venipuncture (in house) (Collection Date & Time - 05/26/2024)* Value Reference Range w bc 7.5 3.5 - 10 * l ymph 14.6 15 - 50 * m id 3.6 2 - 15 * g ran 81.8 35 - 80 * r bc 5.06 3.5 - 5.5 * h gb 15.3 11.5 - 16.5 * h ct 45.9 35 - 55 * m cv 90.7 75 - 100 * m ch 30.3 25 - 35 * m chc 33.4 31 - 38 * p latlet 260 100 - 400 * Natalya Ingram 05/26/2024 11:1 2:56 AM > , Provider reviewed results while patient in office.Radha Posadas 05/26/2024 11:27:32 AM > ?Imaging: EKG Notes: discussed with DR. Gonzales? Referral To:. Cardiology??Cardiovascular Disease ?Reason: 3.?ETOH abuse? Notes: discussed decreasing ETOH intake??4.?Tobacco use disorder? Notes: He chews tobacco; discussed tobacco cessation??5.?Chest pain? Start Nitroglycerin Tablet Sublingual, 0.4 MG, 1, Sublingual, prn chest pain; may repeat in 5 min x2, 20.?? Notes: to see cardiology at 130 pm today??6.?Type 2 diabetes mellitus without complication? Continue Glimepiride Tablet, 2 MG, 1 tab(s), Orally, Two times a day;?Continue metFORMIN HCl ER Tablet Extended Release 24 Hour, 500 MG, TAKE 2 TABLETS BY MOUTH TWICE DAILY;?Continue Farxiga Tablet, 10 MG, 1 tablet, Orally, Once a day.?LAB: P-Comprehensive Metabolic Panel (CMP) (Collection Date & Time - 05/26/2024 10:00 AM)?gluc 242, bun 21* Value Reference Range A /G Ratio 1.3 1.1-2.5 - * A lbumin 4.3 3.5-5.3 - g/dL * A lkaline Phosphatase 101 40-129 - IU/L * A LT (SGPT) 30 <5-55 - IU/L * A ST (SGOT) 32 <5-46 - IU/L * B ilirubin, Total 0.4 <0.2-1.2 - mg/dL * B UN 21 H 6-20 - mg/dL * C alcium 9.6 8.6-10.4 - mg/dL * C hloride 99 97-108 - mmol/L * C O2 22 22-32 - mmol/L * C reatinine 0.89 0.70-1.30 - mg/dL * G lucose 242 H 65-99 - mg/dL * P otassium 4.9 3.5-5.3 - mmol/L * S odium 136 135-145 - mmol/L * P rotein 7.5 6.0-8.3 - g/dL * e GFR by Creatinine 99 >59 - mL/min/1.73m2 * Radha Posadas 06/02/2024 9:27:54 AM > I spoke with pt and reported results ?LAB: P-CPK and CKMB (Collection Date & Time - 05/26/2024 10:00 AM)?Normal* Value Reference Range C K MB Fraction 2.3 <7.7 - ng/mL * C reatine Kinase 74 20-200 - U/L * Radha Posadas 06/02/2024 9:28:15 AM > I spoke with pt and reported results ?LAB: Glucose (In-House) (Collection Date & Time - 05/26/2024)?258* Value Reference Range b lood glucose 258 74 - 106 mg/dL * Natalya Ingram 05/26/2024 11:1 1:32 AM > , Provider reviewed results while patient in office.Radha Posadas 05/26/2024 11:27:18 AM > ?LAB: Glycohemoglobin A1c (in house) (Collection Date & Time - 05/26/2024)? 8.4%* Value Reference Range g lycohemoglobin 8.4% 5 - 6.5 % * Natalya Ingram 05/26/2024 11:1 2:02 AM > , Provider reviewed results while patient in office.Radha Posadas 05/26/2024 11:27:02 AM > ?LAB: P-Troponin I (Collection Date & Time - 04/19/2025)* see duplicate order Notes: has been taking only 2 metformin in the AM and no PM dose; will try to remember to take HS dose;??7.?Essential hypertension? Continue Ramipril Capsule, 10 MG, TAKE 1 CAPSULE BY MOUTH EVERY DAY.?? 8.?Hyperuricemia? Continue Allopurinol Tablet, 300 MG, TAKE 1 TABLET BY MOUTH EVERY DAY.?LAB: P-Uric Acid (Collection Date & Time - 05/26/2024 10:00 AM)?3.1* Value Reference Range U jackson Acid 3.1 L 3.4-8.0 - mg/dL * Radha Posadas 06/02/2024 9:26:19 AM > I spoke with pt and reported results 9.?Pure hypercholesterolemia? Continue Fenofibrate Tablet, 145 MG, TAKE 1 TABLET BY MOUTH EVERY DAY;?Continue Rosuvastatin Calcium Tablet, 20 MG, TAKE 1 TABLET BY MOUTH EVERY DAY.?? 10.?Others? Notes: has cardiology appt at 130 pm today; will have EKG done at [facility]; discussed when to go to the ER?? * Labs: * L ab: D-Cxyrxnqn-D (Collection Date & Time - 05/26/2024 10:00 AM) N ormal Value Reference Range T roponin-T 14 <6-18 - ng/L * [facility], IT support 05/27/2024 07:45:02 : This order was created by the Interface.Radha Posadas 06/02/2024 9:18:28 AM > no answer when phonedHRadha montgomery 06/02/2024 9:27:31 AM > I spoke with pt and reported results * Procedure Codes: 8 3036 GLYCATED HEMOGLOBIN TEST, Modifiers: QW , 69821 CBC WITH AUTO DIFF, 79872 VENIPUNCT, ROUTINE*, 04551 CAPILLARY BLOOD DRAW, 90034 GLUCOSE TEST * Follow Up: p rn,will notify of test results * Images: Billing Information: * Visit Code: 51227 Office Visit, Est Pt., Level 4. * Procedure Codes: 37441 GLYCATED HEMOGLOBIN TEST. Modifiers: QW 91587 CBC WITH AUTO DIFF. 47118 VENIPUNCT, ROUTINE*. 81410 CAPILLARY BLOOD DRAW. 91028 GLUCOSE TEST. * Electronic signature of Tiffany Posadas APRN on 06/14/2025 at 10:03 AM EST Sign off status: Pending * Provider: MAGDIEL Quezada Date: 07/26/2023 Generated for Nettie meier/Trav/Jeromeitting on: 08/15/2024 10:03 AM EST History and Physical Notes * HPI (History of Present Illness) Category Sub-Category Detail Notes Category Not es Cardiology Chest Pain left chest hurts to rub Dizziness Fatigue Pt is here today wit h c/o feeling light headed. Pt sts he has had a headache, chest pain, numbness and sts that everything in his body hurts and sts this has all been going on for 2 weeks. 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 passed out Headaches HPI pt did go hunti ng this past weekend; he drinks 12 beers daily Examination Category Sub-Category Detail Notes Category Not es General Examination HEENT: sclera and conjunctiv a clear, PERRLA, Heart: irregular rhythm Lungs: CTAB A&P Abdomen: bowel sounds present soft and nontender Extremities: 1+ leg edema bilater ally General Appearance: NAD appears healthy alert pleasant Neurologic Exam: alert and oriented n ormal cranial nerves II-XII sensory & motor WNL Neck: supple no lymphadeno fredy no carotid bruits thyroid normal Oral cavity: mucosa moist and WNL no erythema Chest: left chest wall sore with palpation Consultation Request Notes Referral Date Referring Provider Referred Provider Not es 05/26/2024 Radha Posadas Cardiology, .
--- OUTSIDE RECORDS SUMMARY | 2024-09-17 09:00 | XMS_ITS ---
[facility] Address [address] [facility] [address] [place] [id number] Care Team Providers Care Political Worker Name Role Phone Simone Gonzales Primary Care Provider Bre Gardner Unavailable [phone] Allergies Allergen (clinical drug ingredient) Drug/Non Drug Allergy documented on EMR Reaction Allergy Type Onset Date Status Penicillin hives Drug Allergy Active Results Component Value Reference Range Notes Influenza Screen (in house) Reviewed date:09/18/2024 08:37:51 AM Interpretation: Performing Lab: Notes/Report: results Pos A REASON FOR VISIT poss.flu Medications Medication SIG (Take, Route, Frequency, Duration) Notes Start Date End Date Status Celecoxib 200 MG TAKE 1 CAPSULE BY MOUTH ONCE DAILY WITH FOOD; Duration: 90 Active Ramipril 10 MG TAKE 1 CAPSULE BY MOUTH EVERY DAY Active Nitroglycerin 0.4 MG 1 Sublingual prn chest pain; may repeat in 5 min x 2 05/26/2024 Active metFORMIN HCl ER 500 MG TAKE 2 TABLETS BY MOUTH TWICE DAILY Active Fenofibrate 145 MG TAKE 1 TABLET BY MOUTH EVERY DAY Active CeleBREX 200 MG TAKE 1 CAPSULE BY MOUTH ONCE DAILY WITH FOOD Active Dicyclomine HCl 20 MG 1 tablet Orally Three times a day, prn Active soup.me Ultra 2 w/Device USE TO CHECK BLOOD GLUCOSE EVERY DAY; Duration: 30 Active Tamiflu 75 MG 1 capsule Orally Twice a day; Duration: 5 day(s) 09/17/2024 Active Venlafaxine HCl ER 150 MG TAKE 1 CAPSULE BY MOUTH EVERY DAY; Duration: 90 Active Glimepiride 2 MG TAKE 1 TABLET BY MOUTH TWICE A DAY; Duration: 90 Active TrueTrack Test - 1 strip test 2 times a day or as directed 10/26/2015 Active Accu-Chek Marley Plus 1 STRIP ONCE DAILY *Please review and pick correct strength-formulatio n from Medispan options. If intended option is not shown, discontinue and re-order from Quick Search* 02/08/2022 Active Farxiga 10 MG TAKE 1 TABLET BY MOUTH EVERY DAY; Duration: 90 Active Montelukast Sodium 10 MG TAKE 1 TABLET BY MOUTH EVERY DAY FOR 30 DAYS; Duration: 90 Active Allopurinol 300 MG TAKE 1 TABLET BY MOUTH EVERY DAY; Duration: 90 Active Rosuvastatin Calcium 40 MG TAKE 1 TABLET BY MOUTH EVERY DAY; Duration: 90 Active Vital Signs Weight 222 lbs 09/17/2024 Blood pressure systolic 130 mm Hg 09/18/19 25 Blood pressure diastolic 74 mm Hg 025 Heart Rate 78 /min 09/17/2024 Height 70 in 09/17/2024 BMI 31.85 kg/m2 09/17/2024 Encounters Encounter Location Date Provider Diagnosis [facility] [address] [facility] [address] [place], [place] [address], [place] [id number] 09/17/2024 Bre Gardner Influenza A J10. 1 Assessments Encounter Date Diagnosis (ICD Code) Assessment Notes Treatment Notes Treatment Clinical Notes Section Notes 09/17/2024 Influenza A (ICD-10 - J10.1) Rest, fluids, tylenol or motrin for fevers. Home until fever free for 24-48 hours without the use of medication. Has cough medication at home. Plan Of Treatment Medication Medication Name Sig Start Date Stop Date Notes Tamiflu 75 MG 1 capsule Orally Twi ce a day; Duration: 5 day(s) 09/17/2024 Treatment Notes Assessment Notes Influenza A Rest, fluids, tyleno l or motrin for fevers. Home until fever free for 24-48 hours without the use of medication. Has cough medication at home. Next Appt Details Follow Up: prn, Reason: Progress Notes * MARY OWUSUDOB:1965 (60 yo M)Acc No.[id number]:09/17/2024 Progress Notes Patient: MARY MORENO Provider: AZUL Hutchinson :1965 A ge:59 Y S ex:Male Date:09/17/2024 Address:[address] [place] [address] [id number] Pcp:Simone Gonzales Subjective: * Chief Complaints: * 1 . Poss.flu. * HPI: E NT/respiratory: 59 year old male presents with c/o cough P t complains of greenish yellow sputum production cough for 2 days. Associated with bodyaches, fever, congestion and headache. * ROS: D ERMATOLOGY: no R dayron. n o H erica. G ASTROENTEROLOGY: no N ausea. n o V omiting. U ROLOGY: no D ifficulty urinating. n o B lood in urine. * Medical History: S easonal Allergies, Heart Murmur, Hypertension, Hyperlipidemia, Hyperuricemia, Impaired Fasting Glucose, HDL Deficiency, Testosterone dDeficiency, Vitamin D Deficiency, Sleep Apnea, Hypersomnolence, Depression, Type 2 diabetes, 07/02/2014. * Surgical History: D enies Past Surgical History. * Hospitalization/Major Diagno stic Procedure: D enies Past Hospitalization. * Family History: F ather: alive, heart [...] detector use: yes. Marital Status: . 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 Past smoking status: no, smokeless tobacco since age of 16 yrs.. Recreational drug use: no. Alcohol: Type: , Frequency: occasionally,Years: , Determination:. * Medications: T aking TrueTrack Test - Strip 1 strip test 2 times a day or as directed , Taking Accu-Chek Marley Plus 1 STRIP ONCE DAILY , Notes to Pharmacist: *Please review and pick correct strength-formulation from Medispan options. If intended option is not shown, discontinue and re-order from Quick Search*, Taking CeleBREX 200 MG Capsule TAKE 1 CAPSULE BY MOUTH ONCE DAILY WITH FOOD , Taking Dicyclomine HCl 20 MG Tablet 1 tablet Orally Three times a day, prn , Taking Venlafaxine HCl ER 150 MG Capsule Extended Release 24 Hour TAKE 1 CAPSULE BY MOUTH EVERY DAY , Taking soup.me Ultra 2 w/Device Kit USE TO CHECK BLOOD GLUCOSE EVERY DAY , Taking Celecoxib 200 MG Capsule TAKE 1 CAPSULE BY MOUTH ONCE DAILY WITH FOOD , Taking metFORMIN HCl ER 500 MG Tablet Extended Release 24 Hour TAKE 2 TABLETS BY MOUTH TWICE DAILY , Taking Fenofibrate 145 MG Tablet TAKE 1 TABLET BY MOUTH EVERY DAY , Taking Ramipril 10 MG Capsule TAKE 1 CAPSULE BY MOUTH EVERY DAY , Taking Nitroglycerin 0.4 MG Tablet Sublingual 1 Sublingual prn chest pain; may repeat in 5 min x 2 , Taking Allopurinol 300 MG Tablet TAKE 1 TABLET BY MOUTH EVERY DAY , Taking Rosuvastatin Calcium 40 MG Tablet TAKE 1 TABLET BY MOUTH EVERY DAY , Taking Glimepiride 2 MG Tablet TAKE 1 TABLET BY MOUTH TWICE A DAY , Taking Farxiga 10 MG Tablet TAKE 1 TABLET BY MOUTH EVERY DAY , Taking Montelukast Sodium 10 MG Tablet TAKE 1 TABLET BY MOUTH EVERY DAY FOR 30 DAYS , Medication List reviewed and reconciled with the patient * Allergies: P enicillin: hives. Objective: * Vitals: W t:222, Temp:101.6, BP:130/74, HR:78, O2 Sat:92% on RA, Nurse:zak, Ht: 70, BMI:31.85. * Examination: E NT/Respiratory: General Appearance: Does not appear to feel well. E ars: a uditory canals normal bilaterally, TM's WNL. N ose : turbinates red, congested.?Sinuses : tender maxillary sinuses bilaterally. O ral cavity : erythema without exudate on pharynx. N christiano : n o cervical lymphadenopathy. H eart : R RR, normal S1 S2, no murmurs. L ungs: c lear to auscultation bilaterally. Assessment: * Assessment: 1. I nfrikki A - J10.1 (Primary) Plan: * Treatment: Value Reference Range r esults Pos A * Sangita Quick 09/17/2024 2:12:10 PM > , Provider reviewed results while patient in office.Bre Gardner 09/18/2024 8:37:48 AM > Notes: Rest, fluids, tylenol or motrin for fevers. Home until fever free for 24- 48 hours without the use of medication. Has cough medication at home.?? * Procedure Codes: 9 4760 [place], [address] Flu Test- Nasal Swab, Modifiers: QW , 3075F SYST BP GE 130 - 139MM HG, 3078F DIAST BP < 80 MM HG * Follow Up: p rn * Images: Billing Information: * Visit Code: 32241 Office Visit, Est Pt., Level 3. * Procedure Codes: [address] [place] [address] Flu Test- Nasal Swab. Modifiers: QW 3075F SYST BP GE 130 - 139MM HG. 3078F DIAST BP < 80 MM HG. * Electronic signature of AZUL Mg on 06/14/2025 at 10:02 AM EST Sign off status: Pending * Provider: AZUL Hutchinson Date: 0 09/17/2024 Generated for Nettie meier/Trav/Toshiasmchuck on: 1 08/15/2024 10:02 AM EST History and Physical Notes * HPI (History of Present Illness) Category Sub-Category Detail Notes Category Not es ENT/respiratory cough Pt complains of greenish yellow sputum production cough for 2 days. Associated with bodyaches, fever, congestion and headache Examination Category Sub-Category Detail Notes Category Not es ENT/Respiratory Oral cavity : erythema without exudate on pharynx Sinuses : tender maxillary sin uses bilaterally Ears: auditory canals norm al bilaterally, TM's WNL Neck : no cervical lymphade nopathy Heart : RRR, normal S1 S2, n o murmurs Lungs: clear to auscultatio n bilaterally General Appearance: Does not appear to f eel well Nose : turbinates red, mya ested
--- OUTSIDE RECORDS SUMMARY | 2024-10-14 09:45 | XMS_ITS ---
[facility] Address [address] [facility] [address] [place] [id number] Care Team Providers Care Systems Navigator Name Role Phone Simone Gonzales Primary Care Provider [phone] Ruben Hewitt Unavailable [phone] Allergies Allergen (clinical drug ingredient) Drug/Non Drug Allergy documented on EMR Reaction Allergy Type Onset Date Status Penicillin hives Drug Allergy Active Results Component Value Reference Range Notes Urinalysis - Inhouse Reviewed date:10/14/2024 05:31:58 PM Interpretation: Performing Lab: Notes/Report: Color/Clarity yellow/clear Leuk Neg Nitrite Neg Urobili 3.2 Protein Neg pH 5.5 Blood Neg Sp. Gr. 1.010 Ketone Neg Bili Neg Gluc 2+ Reason For Referral Diagnosis 1 Gross hematuria (R31 .0) [facility] Referring Provider First Name Ruben Referring Provider Last Name Kash Referring Provider Speciality Family Pra ctice Referred Provider Tapan Aguilar Referred Provider Specialty Urology General Notes Eusebia He 3:39:52 PM > faxed to Dr. Aguilar's office Referral Priority Routine REASON FOR VISIT urinating blood Medications Medication SIG (Take, Route, Frequency, Duration) Notes Start Date End Date Status Montelukast Sodium 10 MG TAKE 1 TABLET B Y MOUTH EVERY DAY FOR 30 DAYS; Duration: 90 Active Glimepiride 2 MG TAKE 1 TABLET BY MANUELA TH TWICE A DAY; Duration: 90 Active Farxiga 10 MG TAKE 1 TABLET BY MANUELA TH EVERY DAY; Duration: 90 Active Rosuvastatin Calcium 40 MG TAKE 1 TABLET BY MOUTH EVERY DAY; Duration: 90 Active Nitroglycerin 0.4 MG 1 Sublingual prn ch est pain; may repeat in 5 min x 2 05/26/2024 Active Allopurinol 300 MG TAKE 1 TABLET BY MANUELA TH EVERY DAY; Duration: 90 Active Apogee Photonicsuch Ultra 2 w/Device USE TO CHECK B LOOD GLUCOSE EVERY DAY; Duration: 30 Active Celecoxib 200 MG TAKE 1 CAPSULE BY MO UTH ONCE DAILY WITH FOOD; Duration: 90 Active Venlafaxine HCl ER 150 MG TAKE 1 CAPSULE BY MOUTH EVERY DAY; Duration: 90 Active metFORMIN HCl ER 500 MG TAKE 2 TABLETS B Y MOUTH TWICE DAILY Active Fenofibrate 145 MG TAKE 1 TABLET BY MANUELA TH EVERY DAY Active Accu-Chek Marley Plus 1 STRIP ONCE DAILY 02/08/2022 Active TrueTrack Test - 1 strip test 2 times a day or as directed 10/26/2015 Active Metoprolol Succinate ER 100 MG 1 tablet Orally Once a day; Duration: 30 day(s) Active Xarelto 20 MG 1 tablet with food Orally Once a day; Duration: 30 day(s) Active Vital Signs Weight 225.4 lbs 10/14/2024 Blood pressure systolic 134 mm Hg 10/15/19 25 Blood pressure diastolic 74 mm Hg 025 Heart Rate 115 /min 10/14/2024 Height 70 in 10/14/2024 BMI 32.34 kg/m2 10/14/2024 Encounters Encounter Location Date Provider Diagnosis [facility] [address] [facility] [address] [place] [id number] 10/14/2024 Ruben Hewitt Gross hematuria R31. 0 Assessments Encounter Date Diagnosis (ICD Code) Assessment Notes Treatment Notes Treatment Clinical Notes Section Notes 10/14/2024 Gross hematuria (ICD-10 - R31.0) Plan Of Treatment Referrals Referral Date Details 10/14/2024 10/14/2024, Tapan Salmeron Appt Details Follow Up: via phone to repo rt progress, Reason: Progress Notes * UMERMARYDOB:1965 (60 yo M)Acc No.[id number]:10/14/2024 Progress Notes Patient: MARY MORENO Provider: Michael Hewitt M.D. :1965 A ge:59 Y S ex:Male Date:10/14/2024 Address:[address] [place] [address] [address] , [id number] Pcp:Simone Gonzales Subjective: * Chief Complaints: * 1 . Urinating blood. * HPI: M genet Reproductive: 59 year old male presents with c/o hematuria P t states he has had blood in his urine 3 times in the last 3 weeks. Pt states his urine is red when this happens. Pt denies any pain or burning . * ROS: C ARDIOLOGY: no D izziness. n o C hest pain. D ERMATOLOGY: no R dayron. n o H erica. G ASTROENTEROLOGY: no N ausea. n o V omiting. * Medical History: S easonal Allergies, Heart [...] detector use: yes. Marital Status: . 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 Past smoking status: no, smokeless tobacco since age of 16 yrs.. Recreational drug use: no. Alcohol: Type: , Frequency: occasionally,Years: , Determination:. * Medications: T aking Metoprolol Succinate ER 100 MG Tablet Extended Release 24 Hour 1 tablet Orally Once a day , Taking Xarelto 20 MG Tablet 1 tablet with food Orally Once a day , Taking TrueTrack Test - Strip 1 strip test 2 times a day or as directed , Taking Accu-Chek Marley Plus 1 STRIP ONCE DAILY , Taking Venlafaxine HCl ER 150 MG Capsule Extended Release 24 Hour TAKE 1 CAPSULE BY MOUTH EVERY DAY , Taking [employer]Schedule Ultra 2 w/Device Kit USE TO CHECK BLOOD GLUCOSE EVERY DAY , Taking Celecoxib 200 MG Capsule TAKE 1 CAPSULE BY MOUTH ONCE DAILY WITH FOOD , Taking metFORMIN HCl ER 500 MG Tablet Extended Release 24 Hour TAKE 2 TABLETS BY MOUTH TWICE DAILY , Taking Fenofibrate 145 MG Tablet TAKE 1 TABLET BY MOUTH EVERY DAY , Taking Nitroglycerin [...] MOUTH EVERY DAY FOR 30 DAYS , Discontinued CeleBREX 200 MG Capsule TAKE 1 CAPSULE BY MOUTH ONCE DAILY WITH FOOD , Discontinued Dicyclomine HCl 20 MG Tablet 1 tablet Orally Three times a day, prn , Discontinued Ramipril 10 MG Capsule TAKE 1 CAPSULE BY MOUTH EVERY DAY , Discontinued Tamiflu 75 MG Capsule 1 capsule Orally Twice a day , Medication List reviewed and reconciled with the patient * Allergies: P enicillin: hives. Objective: * Vitals: W t:225.4, Temp:98.0, BP:134/74, HR:115, Nurse:zak, Ht: 70, BMI:32.34. * Examination: G eneral Examination: General Appearance: N AD. H eart: R SR. L ungs:?clear to auscultation. B ack: no CVA tenderness. Assessment: * Assessment: 1. G ross hematuria - R31.0 (Primary) Plan: * Treatment: Value Reference Range C olor/Clarity yellow/clear * L euk Neg * N itrite Neg * U robili 3.2 * P rotein Neg * p H 5.5 * B lood Neg * S p. Gr. 1.010 * K etone Neg * B shyanne Neg * G avery 2+ * Sangita Quick 10/14/2024 2:59:50 PM > , Provider reviewed results while patient in office.Ruben Hewitt 10/14/2024 5:31:53 PM > ? Referral To:Tapan Art??Urology ?Reason: * Procedure Codes: 8 1002 Urinalysis, no micro, 3075F SYST BP GE 130 - 139MM HG, 3078F DIAST BP < 80 MM HG * Follow Up: v ia phone to report progress * Images: Billing Information: * Visit Code: 33073 Office Visit, Est Pt., Level 3. * Procedure Codes: 21768 Urinalysis, no micro. 3075F SYST BP GE 130 - 139MM HG. 3078F DIAST BP < 80 MM HG. * Electronic signature of Cira Hewitt MD on 06/14/2025 at 10:04 AM EST Sign off status: Pending * Provider: Michael Hewitt M.D. Date: 0 10/14/2024 Generated for Nettie meier/Trav/Jeromeitting on: 1 08/15/2024 10:04 AM EST History and Physical Notes * HPI (History of Present Illness) Category Sub-Category Detail Notes Category Not es Male Reproductive hematuria Pt states he h as had blood in his urine 3 times in the last 3 weeks. Pt states his urine is red when this happens. Pt denies any pain or burning Examination Category Sub-Category Detail Notes Category Not es General Examination Heart: RSR Lungs: clear to auscultatio n General Appearance: NAD Back: no CVA tenderness Consultation Request Notes Referral Date Referring Provider Referred Provider Not es 10/14/2024 Ruben Hewitt Kevin
--- OUTSIDE RECORDS SUMMARY | 2025-01-07 09:30 | XMS_ITS ---
Author Organization [facility] Address [address] [facility] [address] [place] [phone] Care Team Providers Care Drafter Civil Name Role Phone Simone Gonzales Primary Care Provider Allergies Allergen (clinical drug ingredient) Drug/Non Drug Allergy documented on EMR Reaction Allergy Type Onset Date Status Penicillin hives Drug Allergy Active Results Component Value Reference Range Notes H-CBC Reviewed date:01/12/2025 08:51:10 AM Interpretation:wbc 4.2 Performing Lab: Notes/Report: WBC 4.2 4.8-10.8 K/mm3 RBC 4.59 4.60-6.20 M/mm3 HGB 14.3 14.1-18.0 g/dL HCT 42.1 42.0-52.0 % MCV 91.7 80-94 fl MCH 31.2 27.0-31.2 pg MCHC 34.0 31.8-35.4 g/dL RDW-SD 43.4 RDW 13.1 11.5-17.5 % PLT 165 142-424 K/mm3 MPV 10.1 7.4-10.4 fl NE% 58.7 37.0-80.0 % LY% 25.0 10-50 % MO% 8.0 1.7-9.3 % EO% 6.1 0.1-12.0 % BA% 1.7 0.1-2.0 % NRBC% 0 IG% 0.5 NE# 2.5 1.8-7.8 K/mm3 LY# 1.1 0.7-4.5 K/mm3 MO# 0.3 0.1-1.0 K/mm3 EO# 0.3 0.0-0.4 Kmm3 BA# 0.1 0-0.2 K/mm3 NRBC# 0 IG# 0.02 H-Microalbumine/Creatinine Reviewed date:01/12/2025 08:51:10 AM Interpretation:Normal Performing Lab: Notes/Report: UCREAT 49 Not Estab. mg/dL Random urine reference range not established. 24 hour urine samples recommended. MICROALB < 6.000 0-16.7 mg/L MALBCREAT Unable to calculate Urine Microalbumin/Creatinine Ratio due to the less than value for Urine Microalbumin. H-Lipid Panel Reviewed date:01/12/2025 08:51:10 AM Interpretation:LDL 56; TG 422 Performing Lab: Notes/Report: Patient Fasting? Y TRIG 422 30-150 mg/dl If Triglyceride value exceeds 400mg/dL, the VLDL value has no clinical significance. The calculations are accurate for specimens in which the TGL concentration is no more than 400mg/dL and which are not from persons who have Type III Hyperlipoproteinemia. CHOL 165 140-200 mg/dl DLDL 56.36 100-129 mg/dL HDL 42 40-60 mg/dl CHLHDL 3.9 1-3.5 H-CMP Reviewed date:01/12/2025 08:51:10 AM Interpretation:K+ 5.2, gap 16.2, bun 22, gluc 191, Ca 10.3 Performing Lab: Notes/Report: NA 139 136-145 mmol/L K 5.2 3.5-5.1 mmoL/L CL 102 98-107 mmol/L CO2 26 22.0-30.0 mmol/L GAP 16.2 5-15 mEq/L BUN 22 9-20 mg/dl CREATT 0.80 0.66-1.25 mg/dl GFRAA 120 >60 ML/MIN EGFR 99 >60 ml/min GLU 191 74-100 mg/dl CA 10.3 8.4-10.2 mg/dl BILIT 0.8 0.2-1.3 mg/dl AST 41 17-59 U/L ALT 36 12-78 U/L TP 7.5 6.3-8.2 g/dl ALB 4.7 3.5-5.0 g/dl GLOB 2.8 1.3-3.2 g/dL AGRATIO 1.7 1.1-1.8 ALP 69 38-126 U/L H-Glycohemoglobin A1C Reviewed date:01/12/2025 08:51:10 AM Interpretation:10.3 Performing Lab: Notes/Report: HGBA1C 10.3 4.0-6.0 % < 6% Non-Diabetic Level < 7% Controlled Diabetic Level > 8% Poorly Controlled Diabetic Level H-PSA Reviewed date:01/12/2025 08:51:10 AM Interpretation:0.3 Performing Lab: Notes/Report: PSASC 0.3 0.0-4.0 ng/ml REASON FOR VISIT check up fasting labs Medications Medication SIG (Take, Route, Frequency, Duration) Notes Start Date End Date Status Montelukast Sodium 10 MG TAKE 1 TABLET BY MOUTH EVERY DAY FOR 30 DAYS; Duration: 90 Active Allopurinol 300 MG TAKE 1 TABLET BY MOUTH EVERY DAY Once a day; Duration: 30 days Active Rybelsus 3 MG 1 tab Orally daily 01/07/2025 Active Celecoxib 200 MG 1 capsule as needed Orally Once a day; Duration: 30 days Active Nitroglycerin 0.4 MG 1 Sublingual prn chest pain; may repeat in 5 min x 2 05/26/2024 Active Screen Tonic 2 w/Device USE TO CHECK BLOOD GLUCOSE EVERY DAY; Duration: 30 Active Farxiga 10 MG TAKE 1 TABLET BY MOUTH EVERY DAY; Duration: 90 Active Venlafaxine HCl ER 150 MG TAKE 1 CAPSULE BY MOUTH EVERY DAY; Duration: 90 Active Accu-Chek Marley Plus 1 STRIP ONCE DAILY 02/08/2022 Active Tamsulosin HCl 0.4 MG 1 capsule Orally Once a day Active Fenofibrate 145 MG 1 tablet Orally Once a day patient needs an appointment Active Xarelto 20 MG 1 tablet with food Orally Once a day; Duration: 30 day(s) Active metFORMIN HCl ER 500 MG 2 tab(s) Orally Two times a day Active TrueTrack Test - 1 strip test 2 times a day or as directed 10/26/2015 Active Metoprolol Succinate ER 100 MG 1 tablet Orally Once a day Active Rosuvastatin Calcium 40 MG TAKE 1 TABLET BY MOUTH EVERY DAY Active Vital Signs Weight 221.2 lbs 01/07/2025 Blood pressure systolic 120 mm Hg 01/08/20 25 Blood pressure diastolic 70 mm Hg 025 Heart Rate 84 /min 01/07/2025 Height 70 in 01/07/2025 BMI 31.74 kg/m2 01/07/2025 Encounters Encounter Location Date Provider Diagnosis [facility] [address] [place] [id number] 01/07/2025 Simone Gonzales Type 2 diabetes mellitus without complication E11.9 ; Essential hypertension I10 ; Dyslipidemia E78.5 and Screening for prostate cancer Z12.5 Assessments Encounter Date Diagnosis (ICD Code) Assessment Notes Treatment Notes Treatment Clinical Notes Section Notes 01/07/2025 Type 2 diabetes mellitus without complication (ICD-10 - E11.9) Blood sugar is poorly controlled with A1c up to 10.3%. He admits to noncompliance with diet and feels he can do much better. Advised to curtail daily alcohol. He will return for recheck of A1c in 3 months. If no significant improvement, we have discussed starting GLP-1. 01/07/2025 Essential hypertension (ICD-10 - I10) 01/07/2025 Dyslipidemia (ICD-10 - E78.5) 01/07/2025 Screening for prostate cancer (ICD-10 - Z12.5) Plan Of Treatment Medication Medication Name Sig Start Date Stop Date Notes Glimepiride 2 MG take 1 tablet Orally twice a day Rybelsus 3 MG 1 tab Orally daily 01/07/2025 Fenofibrate 145 MG 1 tablet Orally Once a day patient needs an appointment metFORMIN HCl ER 500 MG 2 tab(s) Orally Two times a day Metoprolol Succinate ER 100 MG 1 tablet Orally Once a day Rosuvastatin Calcium 40 MG TAKE 1 TABLET BY MOUTH EVERY DAY Treatment Notes Assessment Notes Type 2 diabetes mellitus wit hout complication Blood sugar is poorly controlled with A1 c up to 10.3%. He admits to noncompliance with diet and feels he can do much better. Advised to curtail daily alcohol. He will return for recheck of A1c in 3 months. If no significant improvement, we have discussed starting GLP-1. Next Appt Details Follow Up: 3 Months,4 Months , Reason: Progress Notes * MARY OWUSUDOB:1965 (60 yo M)Acc No.[id number]:01/07/2025 Progress Notes Patient: MARY MORENO Provider: Simone Gonzales M.D. :1965 A ge:59 Y S ex:Male Date:01/07/2025 Address:[address] [place] [address] [id number] Subjective: * Chief Complaints: * 1 . Check up fasting labs. * HPI: E ndocrinology: Comes in for scheduled checkup. He had outpatient labs were reviewed. He has had a fairly stable course since his last office visit. He was referred to urology for hematuria and he states the workup was negative. He was started on tamsulosin by the urologist. He does report some elevated blood sugar readings. He admits to noncompliance with his diet and drinks beer almost daily. His weight has been fairly stable. He does have nocturia. * ROS: D ERMATOLOGY: no R dayron. [...] diabetes, 07/02/2014. * Family History: F ather: , heart disease, Alzheimers. M other: , hypertension, heart disease, depession. M aternal Grand Father: hypertension, heart disease. M aternal Grand Mother: hypertension, heart disease. M aternal uncle: hypertension, heart disease. 5 brother(s) . 1 son(s) , 1 daughter(s) - healthy. . * Social History: C URRENT TOBACCO USE S moking Status: Patient does NOT smoke. C affeine: yes, frequency:. Exercise: yes. Home smoke detector use: yes. Marital Status: . 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 Past smoking status: no, smokeless tobacco since age of 16 yrs.. Recreational drug use: no. Alcohol: Type: , Frequency: occasionally,Years: , Determination:. * Medications: T aking Tamsulosin HCl 0.4 MG Capsule 1 capsule Orally Once a day , Taking Metoprolol Succinate ER 100 MG Tablet Extended [...] CHECK BLOOD GLUCOSE EVERY DAY , Taking Nitroglycerin 0.4 MG Tablet Sublingual 1 Sublingual prn chest pain; may repeat in 5 min x 2 , Taking Rosuvastatin Calcium 40 MG Tablet TAKE 1 TABLET BY MOUTH EVERY DAY , Taking Farxiga 10 MG Tablet TAKE 1 TABLET BY MOUTH EVERY DAY , Taking Montelukast Sodium 10 MG Tablet TAKE 1 TABLET BY MOUTH EVERY DAY FOR 30 DAYS , Taking Fenofibrate 145 MG Tablet 1 tablet Orally Once a day , Notes to Pharmacist: patient needs an appointment, Taking Allopurinol 300 MG Tablet TAKE 1 TABLET BY MOUTH EVERY DAY Once a day , Taking metFORMIN HCl ER 500 MG Tablet Extended Release 24 Hour 2 tab(s) Orally Two times a day , Taking Celecoxib 200 MG Capsule 1 capsule as needed Orally Once a day , Taking Glimepiride 2 MG Tablet take 1 tablet Orally twice a day , Medication List reviewed and reconciled with the patient * Allergies: P enicillin: hives. Objective: * Vitals: W t: 221.2, Temp: 98.3, BP: 120/70, HR: 84, Nurse: PASCUAL, Ht: 70, BMI:31.74. * Examination: C ardiology: General Appearance: p leasant, NAD. C arotid upstroke:?normal, no bruits. H eart sounds: R RR, normal S1, S2. M urmur, click , gallop:?none. L ungs: c lear, no rales or wheezes. A bdomen: p ositive BS, soft, nontender. E xtremities: n o leg edema. Assessment: * Assessment: 1. T ype 2 diabetes mellitus without complication - E11.9 (Primary) 2 . E ssential hypertension - I10 3 . D yslipidemia - E78.5 4 . S creening for prostate cancer - Z12.5 Plan: * Treatment: Value Reference Range M ICROALB < 6.000 0-16.7 - mg/L * U CREAT 49 Not Estab. - mg/dL * Simone Gonzales 01/12/2025 0 8:50:58 AM EDT > See phone encounter ?LAB: H-Glycohemoglobin A1C (Collection Date & Time - 01/07/2025 08:53 AM)? 10.3* Value Reference Range H GBA1C 10.3 H 4.0-6.0 - % * Simone Gonzales 01/12/2025 0 8:50:58 AM EDT > See phone encounter Notes: Blood sugar is poorly controlled with A1c up to 10.3%. He admits to noncompliance with diet and feels he can do much better. Advised to curtail daily alcohol. He will return for recheck of A1cin 3 months. If no significant improvement, we have discussed starting GLP-1.??2.?Essential hypertension? Continue Metoprolol Succinate ER Tablet Extended Release 24 Hour, 100 MG, 1 tablet, Orally, Once a day.?LAB: H-CBC (Collection Date & Time - 01/07/2025 08:53 AM)?wbc 4.2* Value Reference Range W BC 4.2 L 4.8-10.8 - K/mm3 * R BC 4.59 L 4.60-6.20 - M/mm3 * H GB 14.3 14.1-18.0 - g/dL * H CT 42.1 42.0-52.0 - % * M CV 91.7 80-94 - fl * M CH 31.2 27.0-31.2 - pg * M CHC 34.0 31.8-35.4 - g/dL * R DW 13.1 11.5-17.5 - % * P LT 165 142-424 - K/mm3 * M PV 10.1 7.4-10.4 - fl * N E% 58.7 37.0-80.0 - % * L Y% 25.0 10-50 - % * M O% 8.0 1.7-9.3 - % * E O% 6.1 0.1-12.0 - % * B A% 1.7 0.1-2.0 - % * N E# 2.5 1.8-7.8 - K/mm3 * L Y# 1.1 0.7-4.5 - K/mm3 * M O# 0.3 0.1-1.0 - K/mm3 * E O# 0.3 0.0-0.4 - Kmm3 * B A# 0.1 0-0.2 - K/mm3 * R DW-SD 43.4 - fL * N RBC% 0 - % * N RBC# 0 - 10 3/uL * I G% 0.5 - % * I G# 0.02 - 10 3uL * ChristianSimone braden 01/12/2025 0 8:50:58 AM EDT > See phone encounter ?LAB: H-Microalbumine/Creatinine (Collection Date & Time - 01/07/2025 08:53 AM)?Normal* Value Reference Range M ICROALB < 6.000 0-16.7 - mg/L * U CREAT 49 Not Estab. - mg/dL * Simone Gonzales 01/12/2025 0 8:50:58 AM EDT > See phone encounter ?LAB: H-CMP (Collection Date & Time - 01/07/2025 08:53 AM)?K+ 5.2, gap 16.2, bun 22, gluc 191, Ca 10.3* Value Reference Range N A 139 136-145 - mmol/L * K 5.2 H 3.5-5.1 - mmoL/L * C L 102 98-107 - mmol/L * C O2 26 22.0-30.0 - mmol/L * G AP 16.2 H 5-15 - mEq/L * B UN 22 H 9-20 - mg/dl * C REATT 0.80 0.66-1.25 - mg/dl * G FRAA 120 >60 - ML/MIN * E GFR 99 >60 - ml/min * G IRENA 191 H 74-100 - mg/dl * C A 10.3 H 8.4-10.2 - mg/dl * B ILIT 0.8 0.2-1.3 - mg/dl * A ST 41 17-59 - U/L * A LT 36 12-78 - U/L * T P 7.5 6.3-8.2 - g/dl * A LB 4.7 3.5-5.0 - g/dl * G LOB 2.8 1.3-3.2 - g/dL * A GRATIO 1.7 1.1-1.8 - * A LP 69 38-126 - U/L * Simone Gonzales 01/12/2025 0 8:50:58 AM EDT > See phone encounter 3.?Dyslipidemia? Continue Rosuvastatin Calcium Tablet, 40 MG, TAKE 1 TABLET BY MOUTH EVERY DAY;?Continue Fenofibrate Tablet, 145 MG, 1 tablet, Orally, Once a day, Notes to Pharmacist: patient needs an appointment.?LAB: H-Lipid Panel (Collection Date & Time - 01/07/2025 08:53 AM)?LDL 56; TG 422* Value Reference Range T RIG 422 H 30-150 - mg/dl * C HOL 165 140-200 - mg/dl * D LDL 56.36 L 100-129 - mg/dL * H DL 42 40-60 - mg/dl * C HLHDL 3.9 H 1-3.5 - * Simone Gonzales 01/12/2025 0 8:50:58 AM EDT > See phone encounter 4.?Screening for prostate cancer?LAB: H-PSA (Collection Date & Time - 01/07/2025 08:53 AM)?0.3* Value Reference Range P SASC 0.3 0.0-4.0 - ng/ml * Simone Gonzales 01/12/2025 0 8:50:58 AM EDT > See phone encounter * Procedure Codes: 1 036F TOBACCO NON-USER, 3046F HEMOGLOBIN A1C LEVEL > 9.0%, G8950 PREHTN/HTN BP DOC INDCD F/U DOC, G8752 MOST RECENT SYSTOLIC BP < 140MM HG, G8754 MOST RECENT DIASTOLIC BP < 90MM HG * Follow Up: 3 Months,4 Months * Images: Billing Information: * Visit Code: 41835 Office Visit, Est Pt., Level 4. * Procedure Codes: 1036F TOBACCO NON-USER. 3046F HEMOGLOBIN A1C LEVEL > 9.0%. G8950 PREHTN/HTN BP DOC INDCD F/U DOC. G8752 MOST RECENT SYSTOLIC BP < 140MM HG. G8754 MOST RECENT DIASTOLIC BP < 90MM HG. * Electronic signature of Simone Gonzales MD on 06/14/2025 at 10:05 AM EST Sign off status: Pending * Provider: Simone Gonzales M.D. Date: 0 01/07/2025 Generated for Nettie meier/Trav/Nova on: 1 08/15/2024 10:05 AM EST History and Physical Notes * Examination Category Sub-Category Detail Notes Category Not es Cardiology Lungs: clear, no rales or wheezes Heart sounds: RRR, normal S1, S2 Abdomen: positive BS, soft, n ontender Carotid upstroke: normal, no bruits Extremities: no leg edema Murmur, click , gallop: none General Appearance: pleasant, NAD
--- OUTSIDE RECORDS SUMMARY | 2025-02-11 06:05 | XMS_ITS ---
Author Organization [facility] Address [address] [facility] [address] [place] [phone] Care Team Providers Care Act English Tutor Name Role Phone Simone Gonzales Primary Care Provider Allergies Allergen (clinical drug ingredient) Drug/Non Drug Allergy documented on EMR Reaction Allergy Type Onset Date Status Penicillin hives Drug Allergy Active Results Component Value Reference Range Notes Glucose (In-House) Reviewed date:02/12/2025 02:35:33 PM Interpretation:522 Performing Lab: Notes/Report: 522 blood glucose 522 74 - 106 mg/dL Glycohemoglobin A1c (in hous e) Reviewed date:02/12/2025 02:34:41 PM Interpretation:10.8% Performing Lab: Notes/Report: 10.8% glycohemoglobin 10.8% 5 - 6.5 % Reason For Referral Reason referral to Dr. Rolando hurley and [facility] for diabetes consult Diagnosis 1 Uncontrolled diabete s mellitus (E11.65) Referral [facility] Referring Provider First Name Simone Lee Referring Provider Last Name Christian Referring Provider Speciality Family Pra ctice Referred Provider Specialty Endocrinolog y General Notes Eusebia He 2024 01:40:58 PM > faxed to [facility] Endocrinology Referral Priority Routine REASON FOR VISIT no energy,tired all the time and can't sleep Medications Medication SIG (Take, Route, Frequency, Duration) Notes Start Date End Date Status Fenofibrate 145 MG TAKE 1 TABLET BY MANUELA TH EVERY DAY FOR 30 DAYS; Duration: 90 Active Rosuvastatin Calcium 40 MG TAKE 1 TABLET BY MOUTH EVERY DAY Active Allopurinol 300 MG TAKE 1 TABLET BY MANUELA TH EVERY DAY ONCE A DAY 30 DAYS; Duration: 90 Active Ozempic (0.25 or 0.5 MG/DOSE) 2 MG/3ML as directed Subcutaneous 02/11/2025 Active Metoprolol Succinate ER 100 MG 1 tablet Orally Once a day Active Farxiga 10 MG TAKE 1 TABLET BY MANUELA TH EVERY DAY; Duration: 90 Active Montelukast Sodium 10 MG TAKE 1 TABLET B Y MOUTH EVERY DAY FOR 30 DAYS; Duration: 90 Active [employer] Ultra 2 w/Device USE TO CHECK B LOOD GLUCOSE EVERY DAY; Duration: 30 Active Nitroglycerin 0.4 MG 1 Sublingual prn ch est pain; may repeat in 5 min x 2 05/26/2024 Not-Taking TrueTrack Test - 1 strip test 2 times a day or as directed 10/26/2015 Active Accu-Chek Marley Plus 1 STRIP ONCE DAILY 02/08/2022 Active Tamsulosin HCl 0.4 MG 1 capsule Orally O nce a day Active Xarelto 20 MG 1 tablet with food Orally Once a day; Duration: 30 day(s) Active Venlafaxine HCl ER 150 MG TAKE 1 CAPSULE BY MOUTH EVERY DAY; Duration: 90 Active metFORMIN HCl ER 500 MG 2 TAB(S) ORALLY TWO TIMES A DAY 30 DAYS; Duration: 90 Active Celecoxib 200 MG 1 capsule as needed Orally Once a day; Duration: 30 days Active Vital Signs Weight 221.6 lbs 02/11/2025 Blood pressure systolic 120 mm Hg 02/12/20 25 Blood pressure diastolic 72 mm Hg 025 Heart Rate 64 /min 02/11/2025 Height 70 in 02/11/2025 BMI 31.79 kg/m2 02/11/2025 Encounters Encounter Location Date Provider Diagnosis [facility] [address] [employer], [place] [phone] 02/11/2025 Simone Gonzales Uncontrolled diabete s mellitus E11.65 Assessments Encounter Date Diagnosis (ICD Code) Assessment Notes Treatment Notes Treatment Clinical Notes Section Notes 02/11/2025 Uncontrolled diabetes mellitus (ICD-10 - E11.65) Plan Of Treatment Medication Medication Name Sig Start Date Stop Date Notes Rybelsus 3 MG 1 tab Orally daily 01/07/2025 Ozempic (0.25 or 0.5 MG/DOSE ) 2 MG/3ML as directed Subcutaneous 02/11/2025 Referrals Referral Date Details 02/11/2025 02/11/2025, referral to Dr. Harper and [facility] for diabetes consult Next Appt Details Follow Up: 4 Weeks, Reason: Progress Notes * MARY OWUSUDOB:1965 (60 yo M)Acc No.[id number]:02/11/2025 Progress Notes Patient: MARY MORENO Provider: Simone Gonzales M.D. :1965 A ge:59 Y S ex:Male Date:02/11/2025 Address:[address] [place] [address] [id number] Subjective: * Chief Complaints: * 1 . No energy,tired all the time and can't sleep. * HPI: C ardiology: 59 year old male presents with c/o Fatigue P t is here today for c/o having no energy and being tired all of the time, not being able to sleep. Pt sts he believes it is due to one of his medications, but sts he is unsure as to which one. Pt sts this has been going on for about a month or longer. Pt sts that it has been bad, but sts that it is getting worse.? E ndocrinology: He comes in with chief complaint of fatigue and lack of energy. States he wants to sleep all the time. This seemed to have coincided with starting on Rybelsus. He states however that his blood sugar has been running higher since then between 250 and 500. He also reports that he has completely quit drinking beer and yet his sugar is still high. He is awake every 2 hours during the night to urinate and is thirsty all the time. E NT/respiratory: He has a known history of sleep apnea but has never been able to tolerate CPAP. states he snores all the time. * ROS: D ERMATOLOGY: no R dayron. [...] detector use: yes. Marital Status: . 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 Past smoking status: no, smokeless tobacco since age of 16 yrs.. Recreational drug use: no. Alcohol: Type: , Frequency: occasionally,Years: , Determination:. * Medications: T aking Tamsulosin HCl 0.4 MG Capsule 1 capsule Orally Once a day , Taking Xarelto [...] CAPSULE BY MOUTH EVERY DAY , Taking [employer] Ultra 2 w/Device Kit USE TO CHECK BLOOD GLUCOSE EVERY DAY , Taking Farxiga 10 MG Tablet TAKE 1 TABLET BY MOUTH EVERY DAY , Taking Montelukast Sodium 10 MG Tablet TAKE 1 TABLET BY MOUTH EVERY DAY FOR 30 DAYS , Taking Rybelsus 3 MG Tablet 1 tab Orally daily , Taking Metoprolol Succinate ER 100 MG Tablet Extended Release 24 Hour 1 tablet Orally Once a day , Taking Rosuvastatin Calcium 40 MG Tablet TAKE 1 TABLET BY MOUTH EVERY DAY , Taking Allopurinol 300 MG Tablet TAKE 1 TABLET BY MOUTH EVERY DAY ONCE A DAY 30 DAYS , Taking Fenofibrate 145 MG Tablet TAKE 1 TABLET BY MOUTH EVERY DAY FOR 30 DAYS , Taking metFORMIN HCl ER 500 MG Tablet Extended Release 24 Hour 2 TAB(S) ORALLY TWO TIMES A DAY 30 DAYS , Taking Celecoxib 200 MG Capsule 1 capsule as needed Orally Once a day , Not-Taking Nitroglycerin 0.4 MG Tablet Sublingual 1 Sublingual prn chest pain; may repeat in 5 min x 2 , Medication List reviewed and reconciled with the patient * Allergies: P enicillin: hives. Objective: * Vitals: W t: 221.6, Temp: 98.4, BP: 120/72, HR: 64, Nurse: suhas, Ht: 70, BMI:31.79. * Examination: C ardiology: General Appearance: p leasant, NAD. H EENT: u nremarkable. C arotid upstroke: n ormal, no bruits. H eart sounds: R RR, normal S1, S2.?Murmur, click , gallop: n one. L ungs: c lear, no rales or wheezes. E xtremities: n o leg edema. Assessment: * Assessment: 1. U ncontrolled diabetes mellitus - E11.65 (Primary) Plan: * Treatment: Value Reference Range b lood glucose 522 74 - 106 mg/dL * Natalya Ingram 02/11/2025 11:5 7:10 AM EDT > Provider reviewed results while patient in office.Simone Gonzales 02/12/2025 02:34:55 PM EDT > results reviewed with patient while in the office ?LAB: Glycohemoglobin A1c (in house) (Collection Date & Time - 02/11/2025)? 10.8%* Value Reference Range g lycohemoglobin 10.8% 5 - 6.5 % * Natalya Ingram 02/11/2025 11:5 7:35 AM EDT > Provider reviewed results while patient in office.Simone Gonzales 02/12/2025 02:34:09 PM EDT > results reviewed with patient while in the office ? Referral To:Endocrinology ?Reason:referralto Dr. Harper and [facility] for diabetes consult * Procedure Codes: 3 6416 CAPILLARY BLOOD DRAW, 57020 GLUCOSE TEST, 03927 GLYCATED HEMOGLOBIN TEST, Modifiers: QW , 3046F HEMOGLOBIN A1C LEVEL > 9.0%, 3074F SYST BP LT 130 MM HG, 3078F DIAST BP < 80 MM HG * Follow Up: 4 Weeks * Images: Billing Information: * Visit Code: 48753 Office Visit, Est Pt., Level 3. * Procedure Codes: 02725 CAPILLARY BLOOD DRAW. 52058 GLUCOSE TEST. 59474 GLYCATED HEMOGLOBIN TEST. Modifiers: QW 3046F HEMOGLOBIN A1C LEVEL > 9.0%. 3074F SYST BP LT 130 MM HG. 3078F DIAST BP < 80 MM HG. * Electronic signature of Simone Gonzales MD on 06/14/2025 at 10:05 AM EST Sign off status: Pending * Provider: Simone Gonzales M.D. Date: 0 02/11/2025 Generated for Donnai renea/Trav/eTransmitting on: 1 08/15/2024 10:05 AM EST History and Physical Notes * HPI (History of Present Illness) Category Sub-Category Detail Notes Category Not es Endocrinology He is awake ev oscar 2 hours during the night to urinate and is thirsty all the time. Cardiology Fatigue Pt is here today for c/o having no energy and being tired all of the time, not being able to sleep. Pt sts he believes it is due to one of his medications, but sts he is unsure as to which one. Pt sts this has been going on for about a month or longer. Pt sts that it has been bad, but sts that it is getting worse Examination Category Sub-Category Detail Notes Category Not es Cardiology Lungs: clear, no rales or wheezes HEENT: unremarkable Heart sounds: RRR, normal S1, S2 Carotid upstroke: normal, no bruits Extremities: no leg edema Murmur, click , gallop: none General Appearance: pleasant, NAD Consultation Request Notes Referral Date Referring Provider Referred Provider Not es 02/11/2025 Simone Gonzales , referral t o Dr. Harper and [facility] for diabetes consult
--- OUTSIDE RECORDS SUMMARY | 2025-04-13 11:45 | XMS_ITS ---
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 Name Role Phone Simone Gonzales Primary Care Provider Allergies Allergen (clinical drug ingredient) Drug/Non Drug Allergy documented on EMR Reaction Allergy Type Onset Date Status Penicillin hives Drug Allergy Active REASON FOR VISIT 3 months, Needs labs, diabetic eye exam, shingles, & flu vaccine Medications Medication SIG (Take, Route, Frequency, Duration) Notes Start Date End Date Status Accu-Chek Marley Plus 1 STRIP ONCE DAILY 02/08/2022 Active Montelukast Sodium 10 MG 1 tablet Orally Once a day; Duration: 90 days Active Fenofibrate 145 MG TAKE 1 TABLET BY MANUELA EVERY DAY; Duration: 90 Active Rosuvastatin Calcium 40 MG TAKE 1 TABLET BY MOUTH EVERY DAY Active Metoprolol Succinate ER 100 MG 1 tablet Orally Once a day Active Farxiga 10 MG 1 tablet Orally Once a day Active Xarelto 20 MG 1 tablet with food Orally Once a day; Duration: 30 day(s) Active Tamsulosin HCl 0.4 MG 1 capsule Orally O nce a day Active Nitroglycerin 0.4 MG 1 Sublingual prn ch est pain; may repeat in 5 min x 2 05/26/2024 Not-Taking Celecoxib 200 MG TAKE 1 CAPSULE BY [facility] EVERY DAY NEEDED; Duration: 30 Active Venlafaxine HCl ER 150 MG 1 capsule with food Orally Once a day; Duration: 90 days Active metFORMIN HCl ER 500 MG 2 TAB(S) ORALLY TWO TIMES A DAY 30 DAYS Active Ozempic (1 MG/DOSE) 4 MG/3ML 1 mg Subcutaneous weekly 03/11/2025 Active Allopurinol 300 MG 1 tablet Orally Once a day; Duration: 90 days Active Vital Signs Weight 199.0 lbs 04/13/2025 Blood pressure systolic 110 mm Hg 04/13/20 25 Blood pressure diastolic 80 mm Hg 025 Heart Rate 71 /min 04/13/2025 Height 70 in 04/13/2025 BMI 28.55 kg/m2 04/13/2025 Encounters Encounter Location Date Provider Diagnosis [facility] [address] [place] [id number] 04/13/2025 Simone Gonzales Essential hypertensi on I10 ; Uncontrolled diabetes mellitus E11.65 and BMI 28.0-28.9,adult Z68.28 Assessments Encounter Date Diagnosis (ICD Code) Assessment Notes Treatment Notes Treatment Clinical Notes Section Notes 04/13/2025 Essential hypertension (ICD-10 - I10) 04/13/2025 Uncontrolled diabetes mellitus (ICD-10 - E11.65) Continue Ozempic at current dose until nausea resolves. 04/13/2025 BMI 28.0-28.9,adult (ICD-10 - Z68.28) Plan Of Treatment Medication Medication Name Sig Start Date Stop Date Notes Metoprolol Succinate ER 100 MG 1 tablet Orally Once a day Farxiga 10 MG 1 tablet Orally Once a day metFORMIN HCl ER 500 MG 2 TAB(S) ORALLY TWO TIMES A DAY 30 DAYS Ozempic (1 MG/DOSE) 4 MG/3ML 1 mg Subcutaneous weekly 02/13 Treatment Notes Assessment Notes Uncontrolled diabetes mellitus Continue Ozempic at current dose until nausea resolves. Next Appt Details Follow Up: 4 Weeks, Reason: Progress Notes * MARY OWUSUDOB:1965 (60 yo M)Acc No.[id number]:04/13/2025 Progress Notes Patient: MARY MORENO Provider: Simone Gonzales M.D. :1965 A ge:60 Y S ex:Male Date:04/13/2025 Address:[address] [place] [address] [id number] Subjective: * Chief Complaints: * 1 . 3 months. 2. Needs labs, diabetic eye exam, shingles, & flu vaccine. * HPI: E ndocrinology: He returns for follow-up on his diabetes and initiation of Ozempic. Since increasing the dose to 1 mg, he has had increased nausea and decreased appetite but does note that his blood sugars have finally started to improve but are still in the range of 250-300. He still has symptoms of blurred vision, excessive thirst, and frequent urination. C ardiology: He requests a refill on metoprolol. * ROS: D ERMATOLOGY: no R dayron. n o H erica. G ASTROENTEROLOGY: no N ausea. n o V omiting. n o D iarrhea.? U ROLOGY: no D ifficulty urinating. n [...] detector use: yes. Marital Status: . 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 Past smoking status: no, smokeless tobacco since age of 16 yrs.. Recreational drug use: no. Alcohol: Type: , Frequency: occasionally,Years: , Determination:. * Medications: T aking Tamsulosin HCl 0.4 MG Capsule 1 capsule Orally Once a day , Taking Xarelto 20 MG Tablet 1 tablet with food Orally Once a day , Taking Accu-Chek Marley Plus 1 STRIP ONCE DAILY , Taking Metoprolol Succinate ER 100 MG Tablet Extended Release 24 Hour 1 tablet Orally Once a day , Taking Rosuvastatin Calcium 40 MG Tablet TAKE 1 TABLET BY MOUTH EVERY DAY , Taking metFORMIN HCl ER 500 MG Tablet Extended Release 24 Hour 2 TAB(S) ORALLY TWO TIMES A DAY 30 DAYS , Taking Fenofibrate 145 MG Tablet TAKE 1 TABLET BY MOUTH EVERY DAY , Taking Montelukast Sodium 10 MG Tablet 1 tablet Orally Once a day , Taking Ozempic (1 MG/DOSE) 4 MG/3ML Solution Pen-injector 1 mg Subcutaneous weekly , Taking Allopurinol 300 MG Tablet 1 tablet Orally Once a day , Taking Farxiga 10 MG Tablet 1 tablet Orally Once a day , Taking Venlafaxine HCl ER 150 MG Capsule Extended Release 24 Hour 1 capsule with food Orally Once a day , Taking Celecoxib 200 MG Capsule TAKE 1 CAPSULE BY MOUTH EVERY DAY NEEDED , Not-Taking Nitroglycerin 0.4 MG Tablet Sublingual 1 Sublingual prn chest pain; may repeat in 5 min x 2 , Discontinued TrueTrack Test - Strip 1 strip test 2 times a day or as directed , Discontinued The Whistle Ultra 2 w/Device Kit USE TO CHECK BLOOD GLUCOSE EVERY DAY , Medication List reviewed and reconciled with the patient * Allergies: P enicillin: hives. Objective: * Vitals: W t: 199.0, Temp: 98.3, BP: 110/80, HR: 71, Nurse: AKIL, Ht: 70, BMI:28.55. * Examination: G eneral Examination: General Appearance: N AD. Weight loss noted. H eart: R SR. L ungs: c lear to auscultation. Assessment: * Assessment: 1. U ncontrolled diabetes mellitus - E11.65 (Primary) 2 . E ssential hypertension - I10 3 . B NC 28.0-28.9,adult - Z68.28 Plan: * Treatment: 2. E ssential hypertension Refill Metoprolol Succinate ER Tablet Extended Release 24 Hour, 100 MG, 1 tablet, Orally, Once a day, 90, Refills 1. * Procedure Codes: 1 036F TOBACCO NON-USER, 3074F SYST BP LT 130 MM HG, 3079F DIAST BP 80-89 MM HG * Follow Up: 4 Weeks * Images: Billing Information: * Visit Code: 40383 Office Visit, Est Pt., Level 3. * Procedure Codes: 1036F TOBACCO NON-USER. 3074F SYST BP LT 130 MM HG. 3079F DIAST BP 80-89 MM HG. * Electronic signature of Simone Gonzales MD on 06/14/2025 at 10:02 AM EST Sign off status: Pending * Provider: Simone Gonzales M.D. Date: 0 04/13/2025 Generated for Nettie meier/[employer] on: 1 08/15/2024 10:02 AM EST History and Physical Notes * Examination Category Sub-Category Detail Notes Category Not es General Examination Heart: RSR Lungs: clear to auscultatio n General Appearance: NAD. Weight loss not ed
--- NOTE | 2025-06-14 10:00 | US_ITS ---
FINAL REPORT CLINICAL HISTORY: Elevated Fib 4 score FINDINGS: HEPATIC ULTRASOUND ELASTOGRAPHY EQUIPMENT: [employer] EPIC Elite, C5-1 probe FINDINGS: The median liver stiffness value is 1.46 m/s (6.40 kPa) consistent with moderate to severe fibrosis. The IR/median is 23%. IMPRESSION: Measurements suggestive of moderate to severe fibrosis, in the absence of other known clinical signs, rules out cACLD. If there are known clinical signs, may need further testing for confirmation.. Note: In the setting of elevated liver function tests, postprandial state, and CHF, the degree of liver fibrosis may be overestimated. SRU: <1.37 m/s (5.6 kPa) none to mild fibrosis 1.22-2.2 m/s (5.6 - 15 kPa) moderate to severe fibrosis >2.2 m/s (>15 kPa) advanced fibrosis METAVIR score correlation: >= 1.22 m/s (5.2 kPa) F => 2 >= 1.49 m/s (7.0 kPa) F => 3 >= 2.21 m/s (12.3 kPa) F => 4 Liver stiffness value: <= 5 kPa (1.3 m/s) high probability of being normal < 9 kPa (1.7 m/s) in the absence of other known clinical signs, rules out cACLD. If there are known clinical signs, may need further testing for confirmation. 9-13 kPa (1.7-21 m/s) suggestive of cACLD but need further testing for confirmation >= 13 kPa (2.1 m/s) rules in cACLD > 17 kPa (2.4 m/s) suggestive of CSPH Note: AFRI - acoustic radiation force impulse cACLD - compensated advanced chronic liver diseases CSHP - clinically significant portal hypertension NAFLD - non-alcoholic fatty liver disease Reviewed, Interpreted and Dictated by Amanda Dietz MD Transcribed by Tejal Cabrera Authenticated and [facility]
== END 2025-06-14 23:59 ==
LOC: RAD 09:57
PROVIDERS: PCP Family Medicine; Visit Provider Student in an Organized Health Care Education/Training Program
DX: E11.9 Type 2 diabetes mellitus without complications (principal); K74.00 Hepatic fibrosis, unspecified
CPT/HCPCS: 76981